=== PATIENT | female | born 1935 | race Caucasian/White ===

== ENCOUNTER 2019-12-10 16:40 | Emergency (ER) | payer MEDICARE ==
[2019-12-10] MEDS ORDERED: MORPHINE 10 MG/ML 1ML VIAL (J2270) IM ONE (17:15)
--- NOTE | 2019-12-10 18:12 | REP ---
Left humerus two views: There is demineralization. There is a transverse fracture in the proximal humeral shaft. There is a spiral comminuted fracture of the mid humeral shaft. There is advanced osteoarthritis of the glenohumeral joint and marked narrowing of the subacromial space. Electronically Signed by Santo Flores MD 12/10/2019 06:04 P
--- NOTE | 2019-12-10 18:14 | REP ---
Left elbow for views: Difficulty positioning arises from fractures of the humerus. Four nonstandard views are performed. There is a comminuted spiral fracture of the distal humeral shaft. No elbow fracture or dislocation are identified. No hemarthrosis. Impression: Negative nonstandard views of the left elbow. When the patient's clinical condition will permit I would recommend a follow-up standard left elbow series. Electronically Signed by Santo Flores MD 12/10/2019 06:05 P
[2019-12-10] MEDS ORDERED: PERC5TAB12 PO (18:23)
[2019-12-10 19:14] VITALS: BP 138/78
== END 2019-12-10 19:17 | disposition home or self-care (01) ==
LOC: EDBD 16:40 → M ED 16:40
DX: S42.202A Unspecified fracture of upper end of left humerus, initial encounter for closed fracture (principal); W01.198A Fall on same level from slipping, tripping and stumbling with subsequent striking against other object, initial encounter; Y92.9 Unspecified place or not applicable; Y93.A1 Activity, exercise machines primarily for cardiorespiratory conditioning; Y99.9 Unspecified external cause status; E11.9 Type 2 diabetes mellitus without complications; I10 Essential (primary) hypertension; M19.90 Unspecified osteoarthritis, unspecified site; Z88.5 Allergy status to narcotic agent
CPT/HCPCS: 73060; 73080; 96372; 99284; J2270

== ENCOUNTER → 2020-03-06 | Outpatient (REF) | payer MEDICARE ==
[~2020-03-06] MED LIST: PERC5TAB12 PO
[2020-03-06 11:41] LABS: BASO # 0.1 10^3/uL (0.0-0.2); BASO % 0.6 % (0.0-1.0); EOS # 0.5 10^3/uL (0.0-0.5); EOS % 5.4 % (0.0-3.0); HEMATOCRIT 39.2 % (36.0-47.0); HEMOGLOBIN 11.9 g/dl (12.0-15.5); LYMPH # 2.5 10^3/uL (1.5-5.0); LYMPH % 25.7 % (24.0-44.0); MEAN CORPUSCULAR HEMOGLOBIN 27.2 pg (27.0-33.0); MEAN CORPUSCULAR HGB CONC 30.4 g/dl (32.0-36.5); MEAN CORPUSCULAR VOLUME 89.7 fl (80.0-96.0); MONO # 0.8 10^3/uL (0.0-0.8); PLATELET COUNT, AUTOMATED 270 10^3/uL (150-450); RED BLOOD COUNT 4.37 10^6/uL (4.00-5.40); WHITE BLOOD COUNT 9.9 10^3/uL (4.0-10.0)
[2020-03-06 11:56] LABS: ALBUMIN 3.4 GM/DL (3.2-5.2); ALT/SGPT 25 U/L (12-78); BILIRUBIN,TOTAL 0.5 MG/DL (0.2-1.0); BLOOD UREA NITROGEN 14 MG/DL (7-18); CARBON DIOXIDE LEVEL 34 MEQ/L (21-32); CHLORIDE LEVEL 102 MEQ/L (98-107); CHOLESTEROL LEVEL 169 MG/DL (<200); CHOLESTEROL RISK RATIO 2.522 (<5); CREATININE FOR GFR 0.93 MG/DL (0.55-1.30); FREE T4 1.06 NG/DL (0.76-1.46); GLOMERULAR FILTRATION RATE > 60.0 (>32); GLUCOSE, FASTING 117 MG/DL (70-100); HDL CHOLESTEROL 67 MG/DL (>40); LDL CHOLESTEROL 84 MG/DL (<100); NON-HDL-C 102 MG/DL; POTASSIUM SERUM 4.6 MEQ/L (3.5-5.1); SODIUM LEVEL 142 MEQ/L (136-145); TOTAL PROTEIN 7.4 GM/DL (6.4-8.2); TRIGLYCERIDES LEVEL 92 MG/DL (<150)
== END ==
LOC: M PLALAB 09:15
PROVIDERS: ATTEND Physician Assistant Medical
DX: I10 Essential (primary) hypertension (principal); Z86.79 Personal history of other diseases of the circulatory system; K59.00 Constipation, unspecified

== ENCOUNTER 2020-07-21 13:59 | Inpatient (IN) | payer MEDICARE ==
[~2020-07-21] VITALS: Ht 157.5 cm; Wt 110.9 kg
[2020-07-21] MEDS ORDERED: OMEP-218 PO (14:26)
[2020-07-21] MEDS ORDERED: ATOR1TAB21 PO (14:26)
[2020-07-21] MEDS ORDERED: POTA10CA32 PO (14:26)
[2020-07-21] MEDS ORDERED: INCR1INH INH (14:26)
[2020-07-21] MEDS ORDERED: METO5TA PO (14:26)
[2020-07-21] MEDS ORDERED: FURO40TA2 PO (14:26)
[2020-07-21] MEDS ORDERED: MONT10TA4 PO (14:30)
[2020-07-21] MEDS ORDERED: FLUTISP NARES (14:30)
[2020-07-21] MEDS ORDERED: PROAAER10 INH (14:30)
[2020-07-21] MEDS ORDERED: BISO5TAB14 PO (14:30)
--- NOTE | 2020-07-21 15:11 | REPVR ---
PROCEDURE INFORMATION: Exam: XR Chest, 1 View Exam date and time: 07/21/2020 2:56 PM Age: 85 years old Clinical indication: Chest pain; Type not specified TECHNIQUE: Imaging protocol: XR of the chest Views: Frontal portable upright view of the chest. COMPARISON: No relevant prior studies available. FINDINGS: Tubes, catheters and devices: EKG leads are present overlying the chest. Lungs: Lateral left mid lung zone subsegmental atelectasis. The lungs are otherwise clear bilaterally. The pulmonary vasculature is normal. Pleural space: No pleural effusion. No pneumothorax. Heart/Mediastinum: The heart is normal in size and contour. Vasculature: Moderate aortic arch atherosclerotic calcification without ectasia. Bones/joints: Right lateral vertebral body marginal osteophytes are noted at multiple thoracic spinal levels. IMPRESSION: Lateral left mid lung zone subsegmental atelectasis. Electronically signed by: Francisco J Son On 07/21/2020 15:11:13 PM
[2020-07-21 15:30] LABS: BASO % 0.2 % (0.0-1.0); EOS # 0.1 10^3/uL (0.0-0.5); EOS % 0.3 % (0.0-3.0); HEMATOCRIT 38.8 % (36.0-47.0); HEMOGLOBIN 11.9 g/dl (12.0-15.5); LYMPH % 10.7 % (24.0-44.0); MEAN CORPUSCULAR HEMOGLOBIN 26.7 pg (27.0-33.0); MEAN CORPUSCULAR HGB CONC 30.7 g/dl (32.0-36.5); MONO # 1.7 10^3/uL (0.0-0.8); MONO % 9.1 % (0.0-5.0); NEUTROPHILS # 14.7 10^3/uL (1.5-8.5); NEUTROPHILS % 79.2 % (36.0-66.0); PLATELET COUNT, AUTOMATED 306 10^3/uL (150-450); RED BLOOD COUNT 4.46 10^6/uL (4.00-5.40); WHITE BLOOD COUNT 18.5 10^3/uL (4.0-10.0)
[2020-07-21 15:48] LABS: INR 1.12; PROTHROMBIN TIME 14.6 SECONDS (12.5-14.3)
[2020-07-21 15:49] LABS: PARTIAL THROMBOPLASTIN TIME 33.5 SECONDS (24.2-38.5)
[2020-07-21 16:06] LABS: ALBUMIN 3.1 GM/DL (3.2-5.2); ALT/SGPT 18 U/L (12-78); BILIRUBIN,DIRECT 0.3 MG/DL (0.0-0.2); BILIRUBIN,TOTAL 0.8 MG/DL (0.2-1.0); BLOOD UREA NITROGEN 26 MG/DL (7-18); CALCIUM LEVEL 9.5 MG/DL (8.8-10.2); CARBON DIOXIDE LEVEL 39 MEQ/L (21-32); CHLORIDE LEVEL 90 MEQ/L (98-107); CK-MB VALUE MASS 1.2 NG/ML (<3.6); CPK CREATINE PHOSPHOKINASE 153 U/L (26-192); CREATININE FOR GFR 1.26 MG/DL (0.55-1.30); FREE T4 1.69 NG/DL (0.76-1.46); GLOMERULAR FILTRATION RATE 42.9 (>32); GLUCOSE, FASTING 116 MG/DL (70-100); LIPASE 33 U/L (73-393); MB/CK RELATIVE INDEX 0.78 (< OR =4); NT-PRO BNP 336 PG/ML (<450); SODIUM LEVEL 134 MEQ/L (136-145); TOTAL PROTEIN 7.8 GM/DL (6.4-8.2); TROPONIN I < 0.02 NG/ML (< 0.10)
[2020-07-21] MEDS ORDERED: ISOVUE-370 76% 100ML VIAL As Ordered ONE (16:46)
--- NOTE | 2020-07-21 17:23 | REPVR ---
PROCEDURE INFORMATION: Exam: CT Abdomen And Pelvis With Contrast Exam date and time: 07/21/2020 4:34 PM Age: 85 years old Clinical indication: Abdominal pain; Additional info: Shortness of breath, ruq pain TECHNIQUE: Imaging protocol: Computed tomography of the abdomen and pelvis with intravenous contrast. Radiation optimization: All CT scans at this facility use at least one of these dose optimization techniques: automated exposure control; mA and/or kV adjustment per patient size (includes targeted exams where dose is matched to clinical indication); or iterative reconstruction. Contrast material: ISOVUE 370; Contrast volume: 100 ml; Contrast route: INTRAVENOUS (IV); COMPARISON: No relevant prior studies available. FINDINGS: Heart: Mitral annular calcification is present. Mediastinal space: A moderate hiatal hernia is present above the level of the diaphragm. Liver: Focal edema adjacent to the gallbladder. Mild diffuse hypoattenuation of the liver is present consistent with hepatic steatosis. Gallbladder and bile ducts: The gallbladder transverse lumen measures 6.9 cm. Nonuniform gallbladder wall thickening, maximal laterally, with focal masslike thickening measuring 14 mm thickness, with edema of the contiguous right lobe hepatic segment 5. No gallstones identified. No extrahepatic biliary ductal dilatation or ductal calculus identified. Pancreas: Severe pancreatic atrophy. Spleen: A small inferior splenule is present. Adrenals: Normal. No mass. Kidneys and ureters: Normal. No hydronephrosis. Stomach and bowel: There is mildly increased stool noted in the ascending colon. Sigmoid and distal descending colonic diverticula are present without evidence of diverticulitis. Appendix: Surgical laura and/or clips are noted at the previous base of the appendix. The appendix is surgically absent. Intraperitoneal space: Unremarkable. No free air. No significant fluid collection. Vasculature: Moderate abdominal aortic atherosclerotic calcification without aneurysm. The iliac arteries show mild bilateral atherosclerotic calcifications without evidence of aneurysm. LAD and RCA calcified coronary atherosclerosis. Lymph nodes: No enlarged lymph nodes. Urinary bladder: Partially obscured by streak artifact. No calculi as visualized. Reproductive: Partially obscured by streak artifact inferiorly, unremarkable as visualized. Bones/joints: Right total hip replacement with streak artifact. Bilateral lower lumbar facet primary osteoarthritis. Diffuse osteopenia. L4-5 spondylosis with bilateral neural foraminal stenosis. L5-S1 spondylosis with right neural foraminal stenosis. Soft tissues: Unremarkable. IMPRESSION: 1. Findings consistent with acalculous cholecystitis. Gallbladder sonography may be helpful. 2. Fatty infiltration of the liver. 3. Prior appendectomy. 4. Mild right abdominal colonic constipation. 5. Diverticulosis. 6. Hiatal hernia. 7. Coronary atherosclerosis. Electronically signed by: Francisco J Son On 07/21/2020 17:23:07 PM
--- NOTE | 2020-07-21 17:29 | REPVR ---
PROCEDURE INFORMATION: Exam: CT Angiography Chest With Contrast Exam date and time: 07/21/2020 4:34 PM Age: 85 years old Clinical indication: Shortness of breath; Additional info: Shortness of breath, ruq pain TECHNIQUE: Imaging protocol: Computed tomographic angiography of the chest with intravenous contrast. 3D rendering (Not supervised by radiologist): MIP and/or 3D reconstructed images were created by the technologist. Radiation optimization: All CT scans at this facility use at least one of these dose optimization techniques: automated exposure control; mA and/or kV adjustment per patient size (includes targeted exams where dose is matched to clinical indication); or iterative reconstruction. Contrast material: ISOVUE 370; Contrast volume: 100 ml; Contrast route: INTRAVENOUS (IV); COMPARISON: CR PORTABLE CHEST X-RAY 07/21/2020 2:46 PM FINDINGS: Pulmonary arteries: Normal. No pulmonary emboli. Aorta: Moderate aortic valvular calcification is present. Mild aortic arch, branch, and descending thoracic aortic atherosclerotic calcification without ectasia. Lungs: A posterior subpleural 5.4 mm noncalcified pulmonary nodule is noted in the posterior segment segment of the right upper lobe (LOC 118.9). Superior lingular 5.2 cm bulla. Pleural space: No pneumothorax. No pleural effusion. Heart: Mitral annular calcification is present. LAD, LCx and RCA calcified coronary atherosclerosis. Mediastinal space: A moderate hiatal hernia is present above the level of the diaphragm. Lymph nodes: Left axillary lymph node 8.2 mm short axis. Bones/joints: Diffuse osteopenia. Severe left shoulder osteoarthritis, partially imaged. Thoracic spine vertebral body marginal osteophytes are noted at multiple levels. Soft tissues: Unremarkable. IMPRESSION: 1. No pulmonary embolism identified. 2. Lingular bulla. 3. Noncalcified right upper lobe pulmonary nodule. For patients at low risk (minimal or absent history of smoking and of other known risk factors), no routine follow-up is indicated. For patients at high risk (history of smoking or of other known risk factors), consider optional CT at 12 months. (Nahun et al., Fleischner Society, 2017). 4. Coronary atherosclerosis. 5. Hiatal hernia. Electronically signed by: Francisco J Son On 07/21/2020 17:29:45 PM
[2020-07-21] MEDS ORDERED: PIPERACILLIN/TAZOBACTAM SOD 3.375 GM in D5W MINI-BAG PLUS 50 ML IV ONE (18:30)
[2020-07-21] MEDS ORDERED: NS 1,000 ML IV SCH (19:15)
--- NOTE | 2020-07-21 19:16 | REPVR ---
PROCEDURE INFORMATION: Exam: US Abdomen, Limited; Right Upper Quadrant Exam date and time: 07/21/2020 6:27 PM Age: 85 years old Clinical indication: Abdominal pain; Acute; Additional info: Ruq pain TECHNIQUE: Imaging protocol: US abdomen. Real time ultrasound with image documentation. Limited exam focused on the right upper quadrant. COMPARISON: CT ABD/PEL W/IV CONTRAST ONLY 07/21/2020 4:45 PM FINDINGS: Liver: The echogenicity of the liver is increased, which is compatible with fatty liver infiltration. No liver lesion is identified from the images obtained. The contour of the liver is smooth. Gallbladder: There are gallstones and biliary sludge in the distended gallbladder. There is thickening of the wall of the gallbladder, which measures up to 11 mm in thickness. There is a small amount of pericholecystic fluid. On review of the CT abdomen and pelvis on 07/21/2020, inflammatory fat stranding can be seen around the gallbladder. These findings are compatible with acute cholecystitis. Common bile duct: No dilation (7 mm in diameter). No stones are identified in the imaged portion of the common bile duct. Pancreas: The imaged portion of the pancreas is unremarkable. The head of the pancreas was obscured by gas in the stomach and bowel. Right kidney: The right kidney is normal in appearance and measures 11 cm in length. There is no renal cortical thinning. The renal cortical echogenicity is within normal limits. No renal lesion is seen. There is no hydronephrosis. No obvious stones are seen in the renal collecting system. IMPRESSION: 1. Acute cholecystitis. 2. Fatty liver. Electronically signed by: David Toro On 07/21/2020 19:16:28 PM
[2020-07-21] MEDS ORDERED: ALBU83IN NEB (19:51)
[2020-07-21] MEDS ORDERED: ASPI81TA26 PO (19:52)
[2020-07-21] MEDS ORDERED: ALBUTEROL SULFATE 2.5 MG/0.5 ML INH NEB SOLN NEB PRN (21:00)
[2020-07-21] MEDS ORDERED: ONDANSETRON 4MG/2ML VIAL IV PRN (21:00)
[2020-07-21] MEDS ORDERED: POTASSIUM CHLORIDE 10 MEQ SR TABLET PO ONE (21:00)
[2020-07-21 22:40] VITALS: BP 121/59
[2020-07-21] MEDS: OMEPRAZOLE 20 MG CAP PO SCH (23:24)
[2020-07-21] MEDS: LR 1,000 ML IV SCH (23:26)
[2020-07-22] VITALS (7 sets, daily range): BP systolic 96–126; BP diastolic 6–68
[2020-07-22] MEDS: PIPERACILLIN/TAZOBACTAM SOD 3.375 GM in D5W MINI-BAG PLUS 50 ML IV SCH ×4 (02:28→20:56)
[2020-07-22] MEDS: KETOROLAC 30 MG/ML 1ML VIAL IV PRN ×2 (02:28→14:08)
--- NOTE | 2020-07-22 06:47 | HPE ---
DATE OF ADMISSION: 07/21/2020 ADMITTING DIAGNOSIS: Cholelithiasis with acute cholecystitis. HISTORY OF PRESENT ILLNESS: The patient is a pleasant 85-year-old woman who was sent to the Emergency Department from her physicians office with a history of palpitations and chest pain. She reports that she had started having some upper abdominal pain, particularly in the right subcostal area starting on the 20 of July in the afternoon. She had some associated nausea. Her discomfort persisted and she presented to her primary physicians office today where she apparently saw Kari Middleton. With her complaint of chest discomfort she was referred to the Emergency Department for evaluation. In the Emergency Department she underwent workup with laboratory studies including a cardiac injury profile and an EKG. These showed no evidence of acute cardiac problem. She had a CT angiogram of the chest which showed no evidence of pulmonary embolism and also no evidence of pneumothorax or pneumonia. Her workup included a CT scan of the abdomen and pelvis and a gallbladder ultrasound. These last two studies confirmed cholelithiasis with a markedly distended and thickened gallbladder consistent with acute cholecystitis. Dr. Dowd of the Emergency Department has consulted me to evaluate the patient for acute cholecystitis. The patient denies past history of known stones or any past significant abdominal pains. ALLERGIES: The patient denies any known drug allergies, though her medical record indicates that Morphine leads to significant nausea and vomiting. MEDICAL HISTORY: History of paroxysmal atrial fibrillation. She is not currently on any anticoagulation for this. 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 She also did smoke for a time. She has significant osteoarthritis and very limited ambulation. She generally gets around in a wheelchair. She has a history of hypertension and hyperlipidemia. She has some gastroesophageal reflux disease with a known hiatal hernia. She has environmental allergies. SURGICAL HISTORY: The patient reports having had a laparoscopic appendectomy for a ruptured appendix back in 2016. She had a right hip replacement in 2009. She has had bilateral knee surgeries but not a knee replacement. She has had a hemorrhoidectomy. She underwent removal of a thyroid nodule. She reports having had a cardiac catheterization many years ago but no therapeutic maneuvers were performed. 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 She believes she also had a small hernia fixed at the time of her appendectomy. MEDICATIONS: At the time of presentation include: * Albuterol nebulizer every 4 hours as needed for shortness of breath or wheezing. * Albuterol inhaler p.r.n. for shortness of breath. * Aspirin 81 mg p.o. daily. * Atorvastatin 20 mg p.o. daily. * Bisoprolol 5 mg p.o. daily. * Fluticasone Propionate Nasal [place] 2 sprays in the nares daily p.r.n. * Furosemide 40 mg p.o. twice daily with the second dose at dinnertime. * Metolazone 5 mg p.o. daily as needed for swelling in her feet. * Montelukast 10 mg p.o. daily. * Omeprazole 20 mg p.o. twice daily. * Potassium Chloride 10 mEq p.o. daily. * Incruse Ellipta one puff inhaled daily as needed for shortness of breath. REVIEW OF SYSTEMS: The patient denies any chest pain or palpitations currently. She has no shortness of breath, cough, wheezing or sputum production currently. She has no history of hepatitis or pancreatitis or yellow jaundice. She denies any history of diabetes. Other than her thyroid resection for a nodule, she has had no history of thyroid problems. She denies any history of seizure, stroke or TIA and denies any history of DVT or pulmonary embolus. FAMILY HISTORY: Her father had heart disease and her mother was in her mid to late 60s. SOCIAL HISTORY: The patient is currently living with her daughter in the [facility]. She does not smoke and denies any alcohol intake. She reports that she uses a wheelchair to get around and can take only nine or ten steps because of weakness in her legs and pain from her arthritis. PHYSICAL EXAMINATION: VITAL SIGNS: The patient's most recent vital signs show a temperature that was 98.5 when she presented. That was some hours ago. She has a pulse of 75, blood pressure of 99/51 and an oxygen saturation on room air of 91%. GENERAL APPEARANCE: The patient is a pleasant woman lying on the Emergency Department stretcher. She is alert and oriented. She is clearly suffering from morbid obesity. SKIN: Warm and dry. HEENT: Sclerae are anicteric. NECK: Without palpable mass and she has no bruit. HEART: Regular rate and rhythm and she is not tachycardic. LUNGS: Good bilateral breath sounds without wheezes or rhonchi. ABDOMEN: Quite obese. She has a small scar at the inferior aspect of the umbilicus. She has some bowel sounds present on auscultation. On palpation there is a prominence palpable in the medial aspect of the right subcostal area which is moderately to markedly tender. The remainder of the abdomen is without significant tenderness. EXTREMITIES: Chronic, edematous changes in the ankles bilaterally. She has palpable dorsalis pedis and radial pulses bilaterally. LABORATORY STUDIES: CBC with a white count of 18, hemoglobin 12, hematocrit 39 and a platelet count of 306,000. Differential count shows 79% neutrophils, 11% lymphocytes and 9% monocytes. Chemistry profile shows a sodium of 134, potassium 3.0, chloride 90, CO2 of 39, BUN is 26, creatinine 1.3, and a glucose of 116. Liver function tests were normal with the exception of minimal elevation of the alkaline phosphatase to 130. Total protein is 7.8 with an albumin of 3.1. Lipase is normal at 33. She had a coagulation panel that was normal with the exception of a PT of 14.6 which was minimally elevated. IMAGING: A chest x-ray which showed clear lung li bilaterally. Her CT angiogram of the chest showed no evidence of pulmonary embolus. She did have a small air pocket in the left mid lung field, possibly a bleb. She had a CT scan of the abdomen and pelvis that reveals diffuse fatty changes of the liver. The gallbladder is markedly distended. There is marked thickening of the gallbladder wall. There is evidence for a prior appendectomy as well as some diverticulosis. She is also noted to have a hiatal hernia which is small to medium in size. Her gallbladder ultrasound showed sludge and gallstones and a dilated gallbladder with markedly thickened gallbladder wall. IMPRESSION: 1. Cholelithiasis with acute cholecystitis. 2. Morbid obesity. 3. Chronic obstructive pulmonary disease. 4. Paroxysmal atrial fibrillation not currently on any anticoagulation. 5. Osteoarthritis. 6. Hypertension. 7. Hyperlipidemia. PLAN: The patient will be admitted for management of her cholecystitis. She was started on Piperacillin Tazobactam in the Emergency Department and I will continue this for antibiotic coverage. I will continue her cardiac medications and respiratory medications. I will request a physical therapy evaluation and follow up as she has quite limited mobility at baseline, and we need to preserve as much function as possible. I counseled her that the appropriate treatment for her acute cholecystitis would be a cholecystectomy at the earliest opportunity. She had an opportunity to ask questions and desires to proceed with the treatment as I have recommended. ALLA
--- NOTE | 2020-07-22 08:18 | ECGEPIP ---
[facility] - ED Test Date: 2020-07-21 Pat Name: FREEMAN ROCK Department: Room: [place] [address] Gender: Female Queen Producer: DEVORAH : 1935 Requested By: JESSICA Pearson Order Number: [id number] Reading MD: Earle Loving Measurements Intervals Lucas Rate: 73 P: 41 DC: 188 QRS: -11 QRSD: 134 T: 46 QT: 419 QTc: 464 Interpretive Statements SINUS RHYTHM INTRAVENTRICULAR CONDUCTION DELAY PRIOR INFERIOR INFARCT BASELINE ARTIFACT AFFECTS INTERPRETATION NO PRIORS FOR COMPARISON Electronically Signed on 07-22-2020 8:18:14 EDT by Earle Loving
[2020-07-22] MEDS: OMEPRAZOLE 20 MG CAP PO SCH ×2 (08:30→21:00)
[2020-07-22] MEDS: bisoproloL fumarate 5 MG TAB PO SCH (08:30)
[2020-07-22] MEDS: MONTELUKAST 10 MG TAB PO SCH (08:31)
[2020-07-22] MEDS: FUROSEMIDE 40 MG TAB PO SCH ×2 (08:31→16:46)
[2020-07-22] MEDS: LR 1,000 ML IV SCH (08:32)
[2020-07-22 08:44] LABS: BASO % 0.2 % (0.0-1.0); EOS # 0.2 10^3/uL (0.0-0.5); EOS % 1.1 % (0.0-3.0); HEMATOCRIT 35.5 % (36.0-47.0); HEMOGLOBIN 10.9 g/dl (12.0-15.5); LYMPH # 1.5 10^3/uL (1.5-5.0); LYMPH % 10.4 % (24.0-44.0); MEAN CORPUSCULAR HEMOGLOBIN 26.8 pg (27.0-33.0); MEAN CORPUSCULAR HGB CONC 30.7 g/dl (32.0-36.5); MEAN CORPUSCULAR VOLUME 87.2 fl (80.0-96.0); MONO # 1.3 10^3/uL (0.0-0.8); NEUTROPHILS % 78.8 % (36.0-66.0); PLATELET COUNT, AUTOMATED 260 10^3/uL (150-450); RED BLOOD COUNT 4.07 10^6/uL (4.00-5.40)
[2020-07-22] MEDS ORDERED: FLUBLOK(EGG FREE)(QUAD)INFLUENZA VACC 0.5ML SYRINGE 18YRS & OLDER IM ONE (09:00)
[2020-07-22 09:41] LABS: ALBUMIN 2.5 GM/DL (3.2-5.2); BILIRUBIN,TOTAL 0.9 MG/DL (0.2-1.0); CALCIUM LEVEL 8.8 MG/DL (8.8-10.2); CREATININE FOR GFR 1.17 MG/DL (0.55-1.30); GLOMERULAR FILTRATION RATE 46.7 (>32); POTASSIUM SERUM 2.6 MEQ/L (3.5-5.1); TOTAL PROTEIN 6.9 GM/DL (6.4-8.2)
[2020-07-22] MEDS ORDERED: POTASSIUM CHLORIDE 10 MEQ SR TABLET PO ONE (10:45)
[2020-07-22] MEDS: POTASSIUM CHLORIDE 10 MEQ SR TABLET PO SCH ×2 (11:36→13:06)
[2020-07-22] MEDS: ACETAMINOPHEN TAB 650MG DOSE (2X325MG) PO PRN (12:00)
[2020-07-22] MEDS: POTASSIUM CHLORIDE INJ 40 MEQ in LR 1,000 ML IV SCH ×2 (13:51→21:47)
[2020-07-22] MEDS ORDERED: ROCURONIUM BROMIDE 50 MG/5 ML VIAL As Ordered ONE ×2 (17:11→18:13)
[2020-07-22] MEDS ORDERED: propofoL 200 MG/20 ML VIAL As Ordered ONE (17:11)
[2020-07-22] MEDS ORDERED: LIDOCAINE 2% 100MG/5ML SDV (FOR ANES.) As Ordered ONE (17:11)
[2020-07-22] MEDS ORDERED: fentaNYL 100 MCG/2 ML INJECTION (J3010) As Ordered ONE ×2 (17:12→18:58)
[2020-07-22] MEDS ORDERED: MIDAZOLAM INJ 2MG/2ML VIAL (J2250 PER 1MG) As Ordered ONE (17:12)
[2020-07-22] MEDS ORDERED: BUPIVACAINE HCL 0.25% 30ML VIAL As Ordered ONE (17:17)
[2020-07-22] MEDS ORDERED: ePHEDrine SULFATE 25 MG/5 ML(5MG/ML) SYRINGE As Ordered ONE (18:07)
[2020-07-22] MEDS ORDERED: SUGAMMADEX SODIUM 500 MG/5 ML VIAL (BRIDION) As Ordered ONE (18:08)
[2020-07-22] MEDS ORDERED: ACETAMINOPHEN 1000MG 100ML IV BTL (OFIRMEV) (J0131 PER 10MG) As Ordered ONE (18:17)
[2020-07-22] MEDS ORDERED: dexameTHASONE 4 MG/ML 1ML VIAL (J1100 PER 1MG) As Ordered ONE (19:08)
[2020-07-22] MEDS ORDERED: ONDANSETRON 4MG/2ML VIAL As Ordered ONE (19:08)
[2020-07-22] MEDS ORDERED: oxyCODONE 5MG TAB PO PRN ×2 (20:15)
[2020-07-22] MEDS ORDERED: ONDANSETRON 4MG/2ML VIAL IV PRN (20:15)
[2020-07-22] MEDS ORDERED: METOCLOPRAMIDE INJ 10MG/2ML VIAL (J2765 PER 1) IV PRN (20:15)
[2020-07-22] MEDS ORDERED: fentaNYL 100 MCG/2 ML INJECTION (J3010) IV PRN (20:15)
[2020-07-22] MEDS ORDERED: LR 1,000 ML IV SCH (20:15)
[2020-07-22] MEDS ORDERED: ZOSYN 3.375GM VIAL (J2543) As Ordered ONE (20:22)
[2020-07-23] VITALS (7 sets, daily range): BP systolic 96–144; BP diastolic 48–63
[2020-07-23] MEDS: PIPERACILLIN/TAZOBACTAM SOD 3.375 GM in D5W MINI-BAG PLUS 50 ML IV SCH ×4 (02:19→20:48)
[2020-07-23 06:18] LABS: BASO % 0.2 % (0.0-1.0); EOS % 0.1 % (0.0-3.0); HEMATOCRIT 35.6 % (36.0-47.0); HEMOGLOBIN 10.7 g/dl (12.0-15.5); LYMPH # 0.9 10^3/uL (1.5-5.0); LYMPH % 7.6 % (24.0-44.0); MEAN CORPUSCULAR HEMOGLOBIN 26.5 pg (27.0-33.0); MEAN CORPUSCULAR HGB CONC 30.1 g/dl (32.0-36.5); MEAN CORPUSCULAR VOLUME 88.1 fl (80.0-96.0); MONO # 0.5 10^3/uL (0.0-0.8); MONO % 4.2 % (0.0-5.0); NEUTROPHILS # 9.9 10^3/uL (1.5-8.5); NEUTROPHILS % 87.2 % (36.0-66.0); PLATELET COUNT, AUTOMATED 272 10^3/uL (150-450); RED BLOOD COUNT 4.04 10^6/uL (4.00-5.40); WHITE BLOOD COUNT 11.4 10^3/uL (4.0-10.0)
[2020-07-23 06:41] LABS: ALBUMIN 2.3 GM/DL (3.2-5.2); BILIRUBIN,TOTAL 0.8 MG/DL (0.2-1.0); CALCIUM LEVEL 8.5 MG/DL (8.8-10.2); CREATININE FOR GFR 1.22 MG/DL (0.55-1.30); GLOMERULAR FILTRATION RATE 44.5 (>32); POTASSIUM SERUM 3.7 MEQ/L (3.5-5.1); TOTAL PROTEIN 6.7 GM/DL (6.4-8.2)
[2020-07-23] MEDS: MONTELUKAST 10 MG TAB PO SCH (08:44)
[2020-07-23] MEDS: FUROSEMIDE 40 MG TAB PO SCH ×2 (08:45→16:20)
[2020-07-23] MEDS: OMEPRAZOLE 20 MG CAP PO SCH ×2 (08:45→20:48)
[2020-07-23] MEDS: bisoproloL fumarate 5 MG TAB PO SCH (08:45)
[2020-07-23] MEDS: POTASSIUM CHLORIDE 10 MEQ SR TABLET PO SCH ×2 (08:48→20:48)
[2020-07-23] MEDS: MIRALAX *UNIT DOSE* 17GM PACKET PO SCH ×2 (16:21→20:48)
[2020-07-23] MEDS: DOCUSATE SODIUM 100 MG CAP PO SCH (20:48)
[2020-07-23] MEDS: ACETAMINOPHEN TAB 650MG DOSE (2X325MG) PO PRN (20:48)
[2020-07-24] MEDS: PIPERACILLIN/TAZOBACTAM SOD 3.375 GM in D5W MINI-BAG PLUS 50 ML IV SCH ×3 (01:42→14:20)
[2020-07-24 02:00] VITALS: BP 125/63
[2020-07-24 06:00] VITALS: BP 137/63
[2020-07-24 07:14] LABS: BASO % 0.4 % (0.0-1.0); EOS # 0.3 10^3/uL (0.0-0.5); EOS % 2.7 % (0.0-3.0); HEMATOCRIT 35.3 % (36.0-47.0); HEMOGLOBIN 10.6 g/dl (12.0-15.5); LYMPH # 2.1 10^3/uL (1.5-5.0); LYMPH % 21.9 % (24.0-44.0); MEAN CORPUSCULAR HEMOGLOBIN 27.3 pg (27.0-33.0); MONO # 0.8 10^3/uL (0.0-0.8); NEUTROPHILS # 6.5 10^3/uL (1.5-8.5); NEUTROPHILS % 66.6 % (36.0-66.0); PLATELET COUNT, AUTOMATED 252 10^3/uL (150-450); RED BLOOD COUNT 3.88 10^6/uL (4.00-5.40); WHITE BLOOD COUNT 9.7 10^3/uL (4.0-10.0)
[2020-07-24 07:40] LABS: ALBUMIN 2.2 GM/DL (3.2-5.2); BILIRUBIN,TOTAL 0.4 MG/DL (0.2-1.0); CALCIUM LEVEL 8.2 MG/DL (8.8-10.2); CREATININE FOR GFR 1.04 MG/DL (0.55-1.30); GLOMERULAR FILTRATION RATE 53.5 (>32); POTASSIUM SERUM 3.3 MEQ/L (3.5-5.1); TOTAL PROTEIN 6.2 GM/DL (6.4-8.2)
[2020-07-24] MEDS: POTASSIUM CHLORIDE 10 MEQ SR TABLET PO SCH (08:14)
[2020-07-24 08:18] VITALS: BP 113/79
[2020-07-24] MEDS: DOCUSATE SODIUM 100 MG CAP PO SCH (08:18)
[2020-07-24] MEDS: FUROSEMIDE 40 MG TAB PO SCH ×2 (08:18→16:50)
[2020-07-24] MEDS: bisoproloL fumarate 5 MG TAB PO SCH (08:18)
[2020-07-24] MEDS: MONTELUKAST 10 MG TAB PO SCH (08:18)
[2020-07-24] MEDS: OMEPRAZOLE 20 MG CAP PO SCH (08:18)
[2020-07-24] MEDS ORDERED: ASPIRIN 81 MG ENTERIC TAB PO SCH (09:00)
[2020-07-24] MEDS ORDERED: ATORVASTATIN 20 MG TAB PO SCH (09:00)
[2020-07-24 10:00] VITALS: BP 134/63
--- NOTE | 2020-07-24 10:51 | RO ---
DATE OF OPERATION: 07/22/2020 PREOPERATIVE DIAGNOSIS: Cholelithiasis with acute cholecystitis. POSTOPERATIVE DIAGNOSIS: Cholelithiasis with acute cholecystitis. PROCEDURE: Laparoscopic cholecystectomy. SURGEON: Fly Hand M.D. ANESTHESIA: General. INDICATIONS FOR PROCEDURE: Patient is an 85-year-old woman who presented to the emergency department with some epigastric pain and tenderness. Evaluation with CT and ultrasound showed a markedly dilated and thickened gallbladder containing gallstones consistent with acute cholecystitis. She was admitted and started on antibiotics and is now for a laparoscopic cholecystectomy. OPERATIVE PROCEDURE: The patient was brought to the operating room and placed on the table in a supine position. She was placed under general endotracheal anesthesia. The patients abdomen was prepped and draped in a sterile fashion. The distended gallbladder was palpable in the right subcostal area. A 0.25% Marcaine was infiltrated at each of the trocar sites as needed. A short supraumbilical midline incision was made and a Veress needle was inserted. After a positive hanging drop test, the abdomen was inflated. The fascia was incised and a 12-mm port was placed through the supraumbilical site. The laparoscope was placed. Insufflation continued. There was a large mound of omentum in the subhepatic space consistent with walling off of the inflamed gallbladder beneath the omentum. A 5 mm port was placed in the left upper quadrant and two 5 mm ports were placed in the right upper quadrant. The patient was tilted to a reverse Trendelenburg positive and rolled slightly to the left. Graspers were inserted. It was possible to peel the inflamed omentum off of the underlying markedly distended gallbladder using primarily blunt dissection. The gallbladder was clearly quite distended and inflamed. There was no evidence of necrosis however. The tensely distended gallbladder was aspirated with an aspirating needle with return of a large amount of clear, lightly cloudy fluid which was not bilious in color. The gallbladder decompressed nicely though the wall remained quite thickened. It was possible then to grasp the gallbladder and elevate this. There was some omentum adherent around the distal body and neck of the gallbladder and this was dissected free. All of these tissues were quite edematous making dissection somewhat more difficult. The peritoneum was then scored around the neck of the gallbladder and dissection proceeded through the pericholecystic fibrofatty tissues. The cystic duct was identified. The cholecystic artery was also identified. Both structures were cleared of surrounding tissues and then doubly clipped with hemoclips and divided. With further dissection through the thickened tissues around the gallbladder neck, a second artery coming up the lateral aspect of the gallbladder bed was identified and this was controlled with hemoclips and cautery. The gallbladder was then dissected off of the gallbladder bed using cautery dissection. This was a slower process because of the extensive scarring and edema. Once the gallbladder had been completely freed, it was placed in an Endopouch. The right upper quadrant was then copiously irrigated. Several small bleeding points in the gallbladder bed were controlled with cautery. Final inspection revealed no evidence of bleeding or bile leak. The patient was returned to a flat position and a final irrigation of the right upper quadrant was performed. The patient's abdomen was then deflated and the trocars were all removed. The gallbladder was recovered through the supraumbilical site. This necessitated extending the skin and fascial incisions to approximately 4-5 cm to allow passage of the markedly thickened gallbladder. This was sent for permanent pathology. The fascia was closed with interrupted simple sutures of 1-0 Vicryl. The skin incisions were all closed with buried 4-0 Vicryl and Steri-Strips. Light dressings were applied. The patient tolerated the procedure well without apparent complications. She was awakened in the operating room, extubated and moved to the recovery room in stable condition. ALLA
[2020-07-24 14:00] VITALS: BP 137/63
--- NOTE | 2020-07-25 11:46 | IPN ---
DATE: 07/23/2020 HISTORY: The patient is now postop day #1 from a laparoscopic cholecystectomy for severe acute cholecystitis. The gallbladder was markedly inflamed and thickened but not gangrenous. There was no spillage of gallbladder contents during the procedure. The patient reports very little discomfort this morning. She has tolerated liquids well. Vital signs show that she has been afebrile since surgery. Her pulse has remained in the 60s. Blood pressure has been good with a good oxygen saturation. Intake and output shows that yesterday she had 1500 in with 1100 out. Her urine output was good and she appears to have a good urine output this morning as well. PHYSICAL EXAMINATION: Patient is lying quietly in the hospital bed. Her morbid obesity is apparent. She is alert and oriented. Heart and lung exams are unremarkable. The abdomen is obese. Her wound dressings are clean and dry. She has bowel sounds present. The abdomen is without any undue tenderness. LABORATORY STUDIES: Today show a white count of 11,000 with a differential showing 87% neutrophils and 8% lymphocytes. She has a hemoglobin of 11, hematocrit 36 and a platelet count of 272,000. Her chemistry profile shows a sodium of 140, potassium of 3.7, chloride 99, CO2 of 35, BUN of 21, a creatinine of 1.2 and a glucose of 138. Liver function tests show a very slight rise from yesterday. IMPRESSION: Patient is doing very well postop day #1 from her laparoscopic cholecystectomy. PLAN: Patient has not yet had much regular food. She has no nausea or vomiting but has been slow to advance her diet somewhat. She is also complaining of a feeling of constipation. I have recommended that she remain in the hospital another day, both to monitor for her severe acute cholecystitis. If her white count and differential return toward normal and she has an improved intake tomorrow, I anticipate she could be discharged. ALLA
--- NOTE | 2020-07-25 11:48 | IPN ---
DATE: 07/24/2020 HISTORY: Patient is now postop day #2 from a laparoscopic cholecystectomy for a markedly inflamed gallbladder with large stones. This afternoon, she is up in her wheelchair, dressed and in excellent spirits and eager to go home. She denies any significant pain and has had no pain medication since yesterday and that was Tylenol. Vital signs show that she has been afebrile with a pulse in the 60s and 70s and a normal blood pressure. Intake and output shows that she did have a bowel movement yesterday. Her urine output is good and her intake has been good. PHYSICAL EXAMINATION: As noted, patient is up in a wheelchair. Examination of the abdomen shows it to be obese but soft and her dressings and wounds are clean and dry. She has no undue tenderness. LABORATORY STUDIES: Show that her white count today is 10 with a hemoglobin of 11, hematocrit of 35 and a platelets count of 252,000. Her differential is approaching normal with 67% neutrophils, 22% lymphocytes and 8% monocytes. Chemistry profile shows a sodium of 141, potassium of 3.3, chloride 100, CO2 of 36, BUN of 32, creatinine 1.0 and a glucose of 98. Her liver function tests are slightly improved from yesterday. Pathology reveals acute suppurative cholecystitis with cholelithiasis. IMPRESSION: Patient is doing very well now two days postop from her laparoscopic cholecystectomy for acute cholecystitis. She has been taking a diet well, has had a bowel movement and appears quite comfortable today and is eager to go home. She plans to be singing with her virtual prayer group this evening. PLAN: I discussed with the patient her wound care. She can shower as desired and replace the dressings over her wounds if she desires. She should leave the Steri-Strips in place as long as they will stay on. She can take a diet as tolerated and should resume all of her preadmission medications. I will not provide her with a prescription for pain medications as she has not been taking anything. She was advised against any strenuous physical activity for the next two weeks. She should follow up in my office with me in 10-14 days. She should call my office sooner for any problems. She had an opportunity to ask questions. She will be released. ALLA
== END 2020-07-24 17:05 | disposition home or self-care (01) | DRG 418 ==
LOC: M ED 13:59 → M ED INP 20:56 → ENRESERV 21:47 → CANRESERV 21:47 → ENRESERV 22:08 → M MS5PR 22:24
PROVIDERS: ADMIT Surgery; ATTEND Surgery
PROC: 0FT44ZZ Resection of Gallbladder, Percutaneous Endoscopic Approach (ICD-10-PCS; principal; 2020-07-22 16:00)
DX: K80.62 Calculus of gallbladder and bile duct with acute cholecystitis without obstruction (principal); Z68.41 Body mass index [BMI] 40.0-44.9, adult; J44.9 Chronic obstructive pulmonary disease, unspecified; I10 Essential (primary) hypertension; E78.5 Hyperlipidemia, unspecified; M19.90 Unspecified osteoarthritis, unspecified site; K21.9 Gastro-esophageal reflux disease without esophagitis; K44.9 Diaphragmatic hernia without obstruction or gangrene; K76.0 Fatty (change of) liver, not elsewhere classified; J30.9 Allergic rhinitis, unspecified; Z90.49 Acquired absence of other specified parts of digestive tract; Z96.641 Presence of right artificial hip joint; Z79.82 Long term (current) use of aspirin; Z79.899 Other long term (current) drug therapy; Z87.891 Personal history of nicotine dependence; E66.01 Morbid (severe) obesity due to excess calories; I48.0 Paroxysmal atrial fibrillation

== ENCOUNTER → 2020-08-14 | Outpatient (CLI) | payer MEDICARE ==
[~2020-08-14] MED LIST changes: +ALBU83IN NEB; +ASPI81TA26 PO; +ATOR1TAB21 PO; +BISO5TAB14 PO; +FLUTISP NARES; +FURO40TA2 PO; +INCR1INH INH; +METO5TA PO; +MONT10TA4 PO; +OMEP-218 PO; +POTA10CA32 PO; +PROAAER10 INH
--- NOTE | 2020-08-14 14:57 | REP ---
INDICATION: RIGHT UPPER QUADRANT PAIN US 1ST LABS 2ND. Status post recent cholecystectomy. COMPARISON: Comparison CT study July 21, 2020. Comparison sonography July 21, 2020.. TECHNIQUE: Transabdominal right upper quadrant scanning. FINDINGS: Scanning through the right upper quadrant of the abdomen was somewhat limited due to body habitus and limited subcostal scan windows. Gallbladder surgically absent. Common bile duct measures 1.0 cm which is the upper range of normal post cholecystectomy. I note that the CBD measurement was 0.7 cm by ultrasound on July 21, 2020. There is increased echogenicity and poor insonation generally in the liver consistent with fatty infiltration. There are 3 hypoechoic areas in the right lobe of the liver. These measure as follows: 1.7 x 1.2 x 1.6, 0.8 x 0.6 x 0.8, and 0.7 x 0.7 x 0.3 cm respectively. These were not previously apparent. Their appearance compared to recent prior studies raises a question of a small intrahepatic abscesses. The pancreas is obscured by abdominal gas. There is no evidence of abdominal ascites. No right renal abnormality is noted. The right kidney measures 9.0 x 3.6 x 4.1 cm. IMPRESSION: Three small focal hypodense lesions in the liver not previously observed question small abscesses. The largest of these measures 1.7 cm in greatest diameter. Common bile duct is at the upper range of normal post cholecystectomy, 1.0 cm. Consider further imaging with CT scanning or MRCP exam. <Electronically signed by Yeyo Alba > 08/14/20 [id number]
[2020-08-14 15:03] LABS: BASO % 0.3 % (0.0-1.0); EOS # 0.2 10^3/uL (0.0-0.5); HEMATOCRIT 42.6 % (36.0-47.0); HEMOGLOBIN 12.8 g/dl (12.0-15.5); LYMPH # 2.4 10^3/uL (1.5-5.0); MEAN CORPUSCULAR HEMOGLOBIN 26.1 pg (27.0-33.0); MEAN CORPUSCULAR VOLUME 86.9 fl (80.0-96.0); MONO # 0.7 10^3/uL (0.0-0.8); MONO % 6.8 % (0.0-5.0); NEUTROPHILS # 7.5 10^3/uL (1.5-8.5); NEUTROPHILS % 68.4 % (36.0-66.0); PLATELET COUNT, AUTOMATED 338 10^3/uL (150-450); WHITE BLOOD COUNT 10.9 10^3/uL (4.0-10.0)
[2020-08-14 15:04] LABS: APPEARANCE, URINE CLEAR (CLEAR); BACTERIA, URINE AUTO 1+ (NEGATIVE); BILIRUBIN, URINE AUTO NEGATIVE (NEGATIVE); BLOOD, URINE BLOOD NEGATIVE (NEGATIVE); COLOR, URINE YELLOW (YELLOW); GLUCOSE, URINE (UA) AUTO NEGATIVE (NEGATIVE); KETONE, URINE AUTO NEGATIVE (NEGATIVE); LEUKOCYTE ESTERASE, URINE AUTO NEGATIVE (NEGATIVE); MUCUS, URINE SMALL (NEGATIVE); NITRITE, URINE AUTO NEGATIVE (NEGATIVE); PROTEIN, URINE AUTO NEGATIVE (NEGATIVE); RBC, URINE AUTO 5 /HPF (0-3); SPECIFIC GRAVITY URINE AUTO 1.011 (1.002-1.035); SQUAMOUS EPITHELIAL CELL UR AU 3 /HPF (0-6); UROBILINOGEN, URINE AUTO 0.2 mg/dL (0.0-2.0); WBC, URINE AUTO 4 /HPF (0-3)
[2020-08-14 15:33] LABS: ALBUMIN 3.6 GM/DL (3.2-5.2); BILIRUBIN,DIRECT 0.1 MG/DL (0.0-0.2); BILIRUBIN,TOTAL 0.5 MG/DL (0.2-1.0); CALCIUM LEVEL 9.9 MG/DL (8.8-10.2); CREATININE FOR GFR 1.23 MG/DL (0.55-1.30); GLOMERULAR FILTRATION RATE 44.1 (>32); POTASSIUM SERUM 3.3 MEQ/L (3.5-5.1); TOTAL PROTEIN 8.4 GM/DL (6.4-8.2)
== END ==
LOC: M RAD 13:47
PROVIDERS: ATTEND Nurse Practitioner
DX: K76.9 Liver disease, unspecified (principal); R10.11 Right upper quadrant pain; Z90.49 Acquired absence of other specified parts of digestive tract

== ENCOUNTER → 2020-08-26 | Outpatient (REF) | payer MEDICARE ==
[2020-08-26 11:44] LABS: INR 1.06
[2020-08-26 11:45] LABS: PARTIAL THROMBOPLASTIN TIME 34.6 SECONDS (24.2-38.5)
[2020-08-26 12:00] LABS: CALCIUM LEVEL 9.7 MG/DL (8.8-10.2); PHOSPHORUS LEVEL 3.4 MG/DL (2.5-4.9); POTASSIUM SERUM 4.9 MEQ/L (3.5-5.1)
== END ==
LOC: M PLALAB 09:43
PROVIDERS: ATTEND Family Medicine
DX: I10 Essential (primary) hypertension (principal); Z51.81 Encounter for therapeutic drug level monitoring

== ENCOUNTER → 2020-09-03 | Outpatient (REF) | payer MEDICARE ==
[~2020-09-03] MED LIST changes: -MONT10TA4 PO; +MONT5TAB2 PO
[2020-09-03 11:16] LABS: INR 1.08; PROTHROMBIN TIME 14.2 SECONDS (12.5-14.3)
[2020-09-03 11:30] LABS: ALBUMIN 3.2 GM/DL (3.2-5.2); ALT/SGPT 22 U/L (12-78); BILIRUBIN,TOTAL 0.6 MG/DL (0.2-1.0); BLOOD UREA NITROGEN 18 MG/DL (7-18); CALCIUM LEVEL 9.1 MG/DL (8.8-10.2); CARBON DIOXIDE LEVEL 31 MEQ/L (21-32); CHLORIDE LEVEL 103 MEQ/L (98-107); CREATININE FOR GFR 0.93 MG/DL (0.55-1.30); GLOMERULAR FILTRATION RATE > 60.0 (>32); GLUCOSE, FASTING 99 MG/DL (70-100); NT-PRO BNP 199 PG/ML (<450); POTASSIUM SERUM 4.3 MEQ/L (3.5-5.1); SODIUM LEVEL 137 MEQ/L (136-145); TOTAL PROTEIN 7.6 GM/DL (6.4-8.2)
== END ==
LOC: M SFHCPLAZ 08:47
PROVIDERS: ATTEND Physician Assistant Medical
DX: E87.6 Hypokalemia (principal); I50.9 Heart failure, unspecified; Z51.81 Encounter for therapeutic drug level monitoring

== ENCOUNTER → 2020-09-17 | Outpatient (REF) | payer MEDICARE ==
[2020-09-17 11:23] LABS: INR 1.16; PROTHROMBIN TIME 15.1 SECONDS (12.5-14.3)
[2020-09-17 11:39] LABS: ALBUMIN 3.3 GM/DL (3.2-5.2); BILIRUBIN,TOTAL 0.4 MG/DL (0.2-1.0); CALCIUM LEVEL 9.5 MG/DL (8.8-10.2); CREATININE FOR GFR 1.87 MG/DL (0.55-1.30); GLOMERULAR FILTRATION RATE 27.2 (>32); POTASSIUM SERUM 3.8 MEQ/L (3.5-5.1); TOTAL PROTEIN 7.6 GM/DL (6.4-8.2)
== END ==
LOC: M PLALAB 09:57
PROVIDERS: ATTEND Physician Assistant Medical
DX: I50.9 Heart failure, unspecified (principal); Z51.81 Encounter for therapeutic drug level monitoring

== ENCOUNTER → 2020-09-24 | Outpatient (REF) | payer MEDICARE ==
[2020-09-24 13:54] LABS: INR 1.19; PROTHROMBIN TIME 15.4 SECONDS (12.5-14.3)
[2020-09-24 14:10] LABS: ALBUMIN 3.2 GM/DL (3.2-5.2); BILIRUBIN,TOTAL 0.6 MG/DL (0.2-1.0); CALCIUM LEVEL 9.3 MG/DL (8.8-10.2); CREATININE FOR GFR 1.1 MG/DL (0.55-1.30); GLOMERULAR FILTRATION RATE 50.1 (>32); POTASSIUM SERUM 3.6 MEQ/L (3.5-5.1); TOTAL PROTEIN 7.5 GM/DL (6.4-8.2)
== END ==
LOC: M PLALAB 09:47
PROVIDERS: ATTEND Physician Assistant Medical
DX: N17.9 Acute kidney failure, unspecified (principal); Z86.79 Personal history of other diseases of the circulatory system; Z79.01 Long term (current) use of anticoagulants

== ENCOUNTER → 2020-10-21 | Outpatient (REF) | payer MEDICARE ==
[~2020-10-21] MED LIST changes: +MONT10TA10 PO; -MONT5TAB2 PO
[2020-10-21 13:57] LABS: INR 3.04; PROTHROMBIN TIME 32.1 SECONDS (12.5-14.3)
[2020-10-21 14:14] LABS: CALCIUM LEVEL 9.5 MG/DL (8.8-10.2); CREATININE FOR GFR 1.19 MG/DL (0.55-1.30); GLOMERULAR FILTRATION RATE 45.8 (>32)
== END ==
LOC: M SFHCPLAZ 10:22
PROVIDERS: ATTEND Physician Assistant Medical
DX: N17.9 Acute kidney failure, unspecified (principal); Z86.79 Personal history of other diseases of the circulatory system

== ENCOUNTER → 2020-11-18 | Outpatient (REF) | payer MEDICARE ==
[2020-11-18 14:07] LABS: INR 3.17; PROTHROMBIN TIME 33.2 SECONDS (12.5-14.3)
[2020-11-18 14:23] LABS: CALCIUM LEVEL 8.9 MG/DL (8.8-10.2); CREATININE FOR GFR 0.95 MG/DL (0.55-1.30); GLOMERULAR FILTRATION RATE 59.4 (>32); POTASSIUM SERUM 3.9 MEQ/L (3.5-5.1)
== END ==
LOC: M SFHCPLAZ 13:35
PROVIDERS: ATTEND Physician Assistant Medical
DX: N17.9 Acute kidney failure, unspecified (principal); Z86.79 Personal history of other diseases of the circulatory system

== ENCOUNTER → 2020-12-10 | Outpatient (REF) | payer MEDICARE | LOC: M SFHCPLAZ 10-12 12:46 | PROVIDERS: ATTEND Physician Assistant Medical | DX: Z51.81 Encounter for therapeutic drug level monitoring (principal) ==

== ENCOUNTER → 2020-12-16 | Outpatient (REF) | payer MEDICARE ==
[2020-12-16 14:14] LABS: INR 3.82; PROTHROMBIN TIME 38.5 SECONDS (12.5-14.3)
[2020-12-16 15:37] LABS: BLOOD UREA NITROGEN 24 MG/DL (7-18); CALCIUM LEVEL 8.8 MG/DL (8.8-10.2); CARBON DIOXIDE LEVEL 32 MEQ/L (21-32); CHLORIDE LEVEL 103 MEQ/L (98-107); CREATININE FOR GFR 0.94 MG/DL (0.55-1.30); GLOMERULAR FILTRATION RATE > 60.0 (>32); GLUCOSE, FASTING 101 MG/DL (70-100); POTASSIUM SERUM 4.8 MEQ/L (3.5-5.1); SODIUM LEVEL 139 MEQ/L (136-145)
== END ==
LOC: M PLALAB 11:16
PROVIDERS: ATTEND Physician Assistant Medical
DX: N17.9 Acute kidney failure, unspecified (principal); Z86.79 Personal history of other diseases of the circulatory system

== ENCOUNTER 2020-12-24 14:10 | Inpatient (IN) | payer MEDICARE ==
[~2020-12-24] VITALS: Ht 162.6 cm; Wt 117.5 kg
--- NOTE | 2020-12-24 16:45 | REP ---
INDICATION: HEMOPTYSIS CHEST PAIN. COMPARISON: Portable chest dated 07/21/2020. Chest CT dated 07/21/2020. TECHNIQUE: Upright PA and lateral chest. FINDINGS: There is a large bulla in the lingular segment of the left upper lobe, unchanged from the prior studies. The left costophrenic angle is mildly effaced on the study today as an interval change suggestive of a small left pleural effusion. There is a faintly visible soft tissue density peripherally in the right lung as an interval change. Cardiac size is mildly enlarged, unchanged. The piedad, mediastinum, and skeletal structures are unchanged. There is osteoarthritis of the right shoulder and of the left shoulder and there is an old healed fracture of the proximal left humeral shaft. IMPRESSION: Probable new small left pleural effusion. Faintly visible soft tissue density peripherally in the right lung as an interval change. Large bulla in the lingula, unchanged. Cardiomegaly, unchanged. Chronic skeletal findings as described. <Electronically signed by Santo Flores > 12/24/20 [id number]
[2020-12-24 17:26] LABS: D-DIMER QUANT 717.93 ng/ml (<500); INR 2.98; PARTIAL THROMBOPLASTIN TIME 59.4 SECONDS (24.2-38.5); PROTHROMBIN TIME 31.7 SECONDS (12.5-14.3)
[2020-12-24 17:28] LABS: ALBUMIN 2.8 GM/DL (3.2-5.2); ALT/SGPT 93 U/L (12-78); BILIRUBIN,DIRECT 0.2 MG/DL (0.0-0.2); BILIRUBIN,TOTAL 0.3 MG/DL (0.2-1.0); BLOOD UREA NITROGEN 20 MG/DL (7-18); CALCIUM LEVEL 8.9 MG/DL (8.8-10.2); CARBON DIOXIDE LEVEL 33 MEQ/L (21-32); CHLORIDE LEVEL 103 MEQ/L (98-107); CK-MB VALUE MASS 1.2 NG/ML (<3.6); CPK CREATINE PHOSPHOKINASE 58 U/L (26-192); CREATININE FOR GFR 0.93 MG/DL (0.55-1.30); GLOMERULAR FILTRATION RATE > 60.0 (>32); GLUCOSE, FASTING 105 MG/DL (70-100); LIPASE 64 U/L (73-393); MB/CK RELATIVE INDEX 2.07 (< OR =4); POTASSIUM SERUM 4.1 MEQ/L (3.5-5.1); SODIUM LEVEL 139 MEQ/L (136-145); TOTAL PROTEIN 8.1 GM/DL (6.4-8.2); TROPONIN I < 0.02 NG/ML (< 0.10)
[2020-12-24] MEDS ORDERED: ISOVUE-370 76% 100ML VIAL As Ordered ONE (17:28)
[2020-12-24 17:31] LABS: BASO # 0.1 10^3/uL (0.0-0.2); BASO % 0.4 % (0.0-1.0); EOS # 0.3 10^3/uL (0.0-0.5); EOS % 2.3 % (0.0-3.0); LYMPH % 16.6 % (24.0-44.0); MEAN CORPUSCULAR HEMOGLOBIN 27.6 pg (27.0-33.0); MEAN CORPUSCULAR HGB CONC 30.3 g/dl (32.0-36.5); MEAN CORPUSCULAR VOLUME 91.2 fl (80.0-96.0); MONO # 1.1 10^3/uL (0.0-0.8); MONO % 9.1 % (2.0-8.0); NEUTROPHILS # 8.4 10^3/uL (1.5-8.5); NEUTROPHILS % 71.1 % (36.0-66.0); PLATELET COUNT, AUTOMATED 377 10^3/uL (150-450); RED BLOOD COUNT 3.62 10^6/uL (4.00-5.40); WHITE BLOOD COUNT 11.8 10^3/uL (4.0-10.0)
[2020-12-24] MEDS ORDERED: ACETAMINOPHEN 500 MG TAB PO ONE (18:00)
--- NOTE | 2020-12-24 18:29 | REPVR ---
PROCEDURE INFORMATION: Exam: CT Angiography Chest With Contrast Exam date and time: 12/24/2020 5:42 PM Age: 85 years old Clinical indication: Chest pain; Additional info: Hemoptysis, SOB, RO pe TECHNIQUE: Imaging protocol: Computed tomographic angiography of the chest with contrast. 3D rendering (Not supervised by radiologist): MIP and/or 3D reconstructed images were created by the technologist. Radiation optimization: All CT scans at this facility use at least one of these dose optimization techniques: automated exposure control; mA and/or kV adjustment per patient size (includes targeted exams where dose is matched to clinical indication); or iterative reconstruction. Contrast material: ISO 370; Contrast volume: 75 ml; Contrast route: INTRAVENOUS (IV); COMPARISON: CT ANGIO CHEST 07/21/2020 4:45 PM FINDINGS: Pulmonary arteries: Normal. No pulmonary emboli. Aorta: Unremarkable. No aortic aneurysm. No aortic dissection. Lungs: Pleural based nodule right upper lobe (series 402, image 22) measuring 6.2 mm. Hypoventilatory changes in the dependent portion of the left lower lobe. Large bleb or bulla in the left upper lobe. Pleural spaces: Small left pleural effusion. Heart: Mild cardiomegaly. Mediastinal space: Moderate size sliding hiatal hernia. Fluid noted within the distal esophagus indicating gastroesophageal reflux. There is stranding/hazy density noted within the mesenteric fat. Lymph nodes:Supraclavicular soft tissue mass noted on the right lateral to the thyroid not imaged in its entirety measuring at least 3 by 1.7 by 1.7 cm. Pretracheal adenopathy measuring 2.2 by 1.7 cm. Prominent left axillary lymph nodes and left subpectoral lymph nodes. Periportal adenopathy present. Multiple mesenteric lymph nodes are noted in the region of the greater omentum (series 4001, image 167). Subcarinal rosy mass measuring 2.5 by 2.7 by 3.2 cm. Liver: Ring-enhancing lesion within the right lobe of the liver measuring approximately 2.6 cm. Ring-enhancing lesion in the medial segment of the left lobe of the liver measuring 2.2 cm. Lesion suggested within the caudate measuring 2.3 cm. Stomach and bowel: Mural wall thickening noted of the 2nd portion of the duodenum. Bones/joints: Mild anterior compression deformities noted involving all of the thoracic vertebral bodies. No retropulsed fragments noted. Healing fracture of the left lateral 4th rib. Acute/subacute (possible pathologic) fracture of the left posterolateral 8th rib. Healing fracture (possible pathologic) of the right posterior 6th rib. Soft tissues: Unremarkable. IMPRESSION: 1. No acute pulmonary embolism. 2. Bilateral rib fractures appearing subacute. Focal expansion of 2 of the rib fractures suggests the possibility of pathologic fracture 3. Mediastinal, right supraclavicular, left axillary, left post pectoral and abdominal adenopathy with multiple liver lesions indicating metastatic disease. 4. Pleural based pulmonary nodule right upper lobe.Fleischner Society follow up recommendations for incidental nodules are not indicated. Follow up per the patient's medical condition. COMMENTS: Consistent with the [employer]'s Incidental Findings Committee white paper (J Am Nuun Radiol 2015): In patients aged 35 years and older with an incidental thyroid nodule equal to or greater than 1.[address], MRI or extrathyroidal US, further evaluation with dedicated thyroid US is recommended for patients with normal life expectancy and without comorbidities. For smaller nodules without suspicious features, no further evaluation or follow up is recommended. Electronically signed by: Alma Carmona On 12/24/2020 18:29:26 PM
[2020-12-24] MEDS ORDERED: WARF-58 PO (19:27)
[2020-12-24] MEDS ORDERED: VITA-172 PO (19:27)
[2020-12-24] MEDS ORDERED: CALC1TAB74 PO (19:27)
[2020-12-24] MEDS ORDERED: FISH1000 PO (19:27)
[2020-12-24] MEDS ORDERED: VOLT1GEL15 TOP (19:27)
[2020-12-24] MEDS ORDERED: COMBIVENT RESPIMAT 100-20MCG INHALER 4GM INH STA (19:39)
[2020-12-24] MEDS ORDERED: ACETAMINOPHEN TAB 650MG DOSE (2X325MG) PO PRN (19:40)
[2020-12-24] MEDS ORDERED: ONDANSETRON 4MG/2ML VIAL IV PRN (19:40)
[2020-12-24] MEDS ORDERED: MAALOX 30 ML SUSP *UDC PO PRN (19:40)
[2020-12-24] MEDS ORDERED: HYDROMORPHONE HCL 0.5 MG/ 0.5 ML SYRINGE (J1170 PER 1) IV PRN (19:40)
[2020-12-24] MEDS ORDERED: MOM 30ML SUSPENSION UDC PO PRN (19:40)
--- NOTE | 2020-12-24 19:47 | HPEPDOC ---
[facility] Medical History & Physical Date of Admission Dec 24, 2020 Date of Service: Dec 24, 2020 Primary Care Physician: Kari Middleton Attending Physician: SUHA STEVENS MD History and Physical TIME OF SERVICE: 840PM CHIEF COMPLAINT: chest pain HISTORY OF PRESENT ILLNESS: This 85 yr old F presented w c/o terrible chest/rib and back pain for 3 or 4 weeks. The chest pain is worse when she takes a deep breath. She denied having trauma to her chest or falling. About 5 weeks ago she was coughing a lot and ended up coughing two blood clots which she said were about the size of the head of a pencil along with sputum with streaks of blood; this not reoccurred since. She has also lost weight, occasionally feels hot at night, but she denies sweating at night, or having fevers or chills. CT of the chest revealed rib fractures and metastasis, which the patient was previously not aware of; she is still having chest pain despite receiving morphine. REVIEW OF SYSTEMS: 12-point review of systems negative except as listed in HPI PAST MEDICAL/ SURGICAL HISTORY: Newly diagnosed metastatic cancer (primary TBD) DLP COPD (per records 2/2 exposure to dust in the workplace but pt reports not being certain about this diagnosis) Essential HTN GERD Paroxysmal A. fib on Coumadin Debility 2/2 weakness and severe OA uses wheel chair Lap appendectomy Lap cholecystectomy Right hip replacement Bilateral knee surgeries Hemorrhoidectomy Thyroid nodule resection Resection of right shoulder tumor Cardiac catheterization with normal coronary arteries Seasonal allergies SOCIAL HISTORY: She quit smoking in 1974, doesnt drink alcohol, has 7 children (lives with one of her daughters). FAMILY HISTORY: Father had CAD / Mother had liver failure / sister had breast cancer / brother had colon cancer / on sister has CAD / another brother has OA / Grand-daughter recently diagnosed with metastatic (colon ?) cancer ALLERGIES: Please see below. HOME MEDICATIONS: Please see below. PHYSICAL EXAMINATION: Vital Signs Date Time Temp Pulse Resp B/P (MAP) Pulse Ox O2 Delivery O2 Flow Rate FiO2 12/24/20 16:03 135/82 (99) 12/24/20 16:10 75 95 12/24/20 19:31 20 Room Air 12/24/20 20:31 2.0 12/24/20 21:28 98.1 GENERAL APPEARANCE: well nourished and developed / initially appeared to be distracted but after her the morphine took effect she was more interactive HEENT: EOMI /no scleral icterus CARDIOVASCULAR: RRR/NMRG / + BLE edema LUNGS: CTAB on RA ABDOMEN: obese / soft & NT MUSCULOSKELETAL: NCAT / requires assistance to sit up / denied pain with palpation of the posterior chest wall and vertebrae INTEGUMENT: not pale, flushed or jaundice NEUROLOGICAL: speech not dysarthric PSYCHIATRIC: A&O x 3 / able to understand and follow commands LABORATORY DATA: Immature Granulocyte % (Auto) 0.5, Neutrophils (%) (Auto) 71.1H, Lymphocytes (%) (Auto) 16.6L, Monocytes (%) (Auto) 9.1H, Eosinophils (%) (Auto) 2.3, Basophils (%) (Auto) 0.4, Neutrophils # (Auto) 8.4, Lymphocytes # (Auto) 2.0, Monocytes # (Auto) 1.1H, Eosinophils # (Auto) 0.3, Basophils # (Auto) 0.1, Nucleated Red Blood Cells % (auto) 0.0, Prothrombin Time 31.7H, Prothromb Time International Ratio 2.98, Activated Partial Thromboplast Time 59.4H, D-Dimer, Quantitative 717 .93H, Anion Gap 3L, Glomerular Filtration Rate > 60.0, Calcium Level 8.9, Total Bilirubin 0.3, Direct Bilirubin 0.2, Aspartate Amino Transf (AST/SGOT) 69H, Alanine Aminotransferase (ALT/SGPT) 93H, Alkaline Phosphatase 605H, Total Creatine Kinase 58, Creatine Kinase MB 1.2, Creatine Kinase MB Relative Index 2.07, Troponin I < 0.02, Total Protein 8.1, Albumin 2.8L, Albumin/Globulin Ratio 0.5L, Lipase 64L IMAGING: Chest xray IMPRESSION: Probable new small left pleural effusion. Faintly visible soft tissue density peripherally in the right lung as an interval change. Large bulla in the lingula, unchanged. Cardiomegaly, unchanged. Chronic skeletal findings as described. CTA chest IMPRESSION: 1. No acute pulmonary embolism. 2. Bilateral rib fractures appearing subacute. Focal expansion of 2 of the rib fractures suggests the possibility of pathologic fracture 3. Mediastinal, right suprac lavicular, left axillary, left post pectoral and abdominal adenopathy with multiple liver lesions indicating metastatic disease. 4. Pleural based pulmonary nodule right upper lobe.Fleischner Society follow up recommendations for incidental nodules are not indicated. Follow up per the patient's medical condition. MICROBIOLOGY: Respiratory panel neg ASSESSMENT: Ms. Mills is an 85 yr old former smoker w a hx of newly diagnosed metastatic cancer whos primary is TBD, COPD, DLP, HTN, GERD, Afib, debility and multiple surgeries who presented w c/o chest pain, remote episode hx of coughing episode w hemoptysis and weight loss; her pain is due to pathological rib fractures li olga due to cancer; she will be admitted for pain management. PLAN: 1 Chest wall and back pain 2/2 pathological fx Drop in O2 sats was likely due to hypoventilation bc of pain Plan: admit to medical floor / IV dilaudid tonight w plans to switch to PO opiate in the morning / flector patches / gabapentin / incentive spirometer / pulse ox w supplemental O2 / day time team may consider anesthesia consult for nerve block 2 Newly diagnosed metastatic cancer Plan: f/u CT abd/pelvis / day time team may consider calling Onc to discuss completing the work-up on an out pt basis vs in-pt biopsy prior to discharge 3 HTN Urgency The pt reports that her SBP is usually in the 150s at home Plan: telemetry / IV metoprolol now / resume meds / if BP not well controlled despite adequate pain management the day time team may consider adding amlodipine / c/w bisprolol and lasix 4 Leukocytosis Likely reactive Plan: monitor vitals 5 NN Anemia Likely 2/2 malignancy Plan: f/u serial Hg & hold Coumadin if there is an acute drop / f/u iron studies and stool occult 6 Transaminitis Possibly 2/2 mets +/- fatty liver Plan: trend LFTs 7 DLP Plan: Atorvastatin 8 COPD Plan: Albuterol 9 Chronic BLE edema Suspect she has chronic sys CHF bc she is also on bisprolol Plan: Lasix and metolazone / f/u BNP 10 Paroxysmal A. fib Plan: c/w Coumadin / f/u INR 11GERD Plan: PPI 12 Debility 13 Obesity Complicates care, she will likely need 2 person assistance for transfers DVT n/a on Coumadin Dispo: home after at least 2 midnights stay Laboratory Data CBC/BMP Laboratory Tests 12/24/20 16:24 Home Medications Scheduled Atorvastatin Calcium (Atorvastatin Calcium) 20 Mg Tablet, 20 MG PO DAILY Bisoprolol Fumarate (Bisoprolol Fumarate) 5 Mg Tablet, 5 MG PO DAILY Calcium Carbonate/Vitamin D3 (Calcium 600-Vit D3 400 Tablet) 1 Each Tablet, 1 TAB PO DAILY Cyanocobalamin (Vitamin B-12) (Vitamin B-12) 500 Mcg Tablet, 500 MCG PO DAILY Fluticasone Propionate (Fluticasone Propionate) 16 Gm [place].susp, 2 SPRAY NARES DAILY Furosemide (Furosemide) 40 Mg Tablet, 40 MG PO DAILY [place]-3 Fatty Acids/Fish Oil (Fish Oil 1,000 mg Capsule) 1 Each Capsule, 1,000 MG PO DAILY Omeprazole (Omeprazole) 20 Mg Capsule.dr, 20 MG PO BID Potassium Chloride (Potassium Chloride) 10 Meq Capsule.er, 10 MEQ PO BID Umeclidinium [place] (Incruse Ellipta) 62.5 Mcg Blst.w.dev, 1 PUFF INH DAILY Warfarin Sodium (Warfarin Sodium) 3 Mg Tablet, 3 MG PO QPM Scheduled PRN Albuterol Sulf (Albuterol Sulfate) 2.5 Mg/3 Ml Vial.neb, 1 VIAL NEB TID PRN for SOB/WHEEZING Albuterol Sulfate (Proair Hfa) 8.5 Gm Hfa.aer.ad, 2 PUFF INH Q4H PRN for SHORTNESS OF BREATH Diclofenac Sodium (Voltaren) 100 Gm Gel..gram., 1 GRAM TOP QID PRN for PAIN APPLY TO LEFT SHOULDER Metolazone (Metolazone) 5 Mg Tablet, 5 MG PO DAILY PRN for SWELLING ONLY TAKES WHEN HER FEET ARE BADLY SWOLLEN Allergies Coded Allergies: morphine (Verified Adverse Reaction, Intermediate, SEVERE N/V, 12/10/19) SUHA STEVENS MD Dec 24, 2020 19:47
[2020-12-24] MEDS ORDERED: METOPROLOL 5 MG/5 ML VIAL IV STA (20:08)
[2020-12-24 20:14] LABS: RSV AMPLIFICATION NEGATIVE (NEGATIVE)
[2020-12-24] MEDS: HYDROMORPHONE HCL 0.5 MG/ 0.5 ML SYRINGE (J1170 PER 1) IV PRN (20:46)
[2020-12-24] MEDS: GABAPENTIN 100 MG CAP PO SCH (21:00)
[2020-12-24] MEDS ORDERED: DICLOFENAC EPOLAMINE 1.3 % PATCH TOP SCH (21:00)
[2020-12-24] MEDS ORDERED: metOLazone 5 MG TAB PO PRN (22:30)
[2020-12-24] MEDS ORDERED: ALBUTEROL 90 MCG/ACT 8GM HFA INHALER INH PRN (22:30)
[2020-12-25] VITALS (14 sets, daily range): BP systolic 86–129; BP diastolic 49–94
[2020-12-25 00:17] LABS: FERRITIN 70 NG/ML (8-252); IRON (FE) 29 UG/DL (50-170); NT-PRO BNP 144 PG/ML (<450); PERCENT SATURATION 9.8 % (13.2-45.0); TOTAL IRON BINDING CAPACITY 297 UG/DL (250-450)
[2020-12-25] MEDS: POTASSIUM CHLORIDE 10 MEQ SR TABLET PO SCH ×3 (01:00→20:39)
[2020-12-25] MEDS: WARFARIN SOD 3MG TAB PO SCH ×2 (01:01→17:09)
[2020-12-25] MEDS: OMEPRAZOLE 20 MG CAP PO SCH ×3 (01:01→20:39)
[2020-12-25] MEDS: DICLOFENAC EPOLAMINE 1.3 % PATCH TOP SCH ×3 (01:01→20:39)
[2020-12-25] MEDS: HYDROMORPHONE HCL 0.5 MG/ 0.5 ML SYRINGE (J1170 PER 1) IV PRN (04:09)
[2020-12-25 05:18] LABS: HEMATOCRIT 30.2 % (36.0-47.0); HEMOGLOBIN 9.1 g/dl (12.0-15.5); MEAN CORPUSCULAR HEMOGLOBIN 27.2 pg (27.0-33.0); MEAN CORPUSCULAR HGB CONC 30.1 g/dl (32.0-36.5); MEAN CORPUSCULAR VOLUME 90.4 fl (80.0-96.0); PLATELET COUNT, AUTOMATED 310 10^3/uL (150-450); RED BLOOD COUNT 3.34 10^6/uL (4.00-5.40); WHITE BLOOD COUNT 10.8 10^3/uL (4.0-10.0)
[2020-12-25 05:29] LABS: INR 2.61; PROTHROMBIN TIME 28.5 SECONDS (12.5-14.3)
[2020-12-25 05:55] LABS: ALBUMIN 2.4 GM/DL (3.2-5.2); ALT/SGPT 80 U/L (12-78); BILIRUBIN,TOTAL 0.5 MG/DL (0.2-1.0); BLOOD UREA NITROGEN 17 MG/DL (7-18); CALCIUM LEVEL 8.2 MG/DL (8.8-10.2); CARBON DIOXIDE LEVEL 33 MEQ/L (21-32); CHLORIDE LEVEL 102 MEQ/L (98-107); CREATININE FOR GFR 0.79 MG/DL (0.55-1.30); GLOMERULAR FILTRATION RATE > 60.0 (>32); GLUCOSE, FASTING 95 MG/DL (70-100); POTASSIUM SERUM 3.8 MEQ/L (3.5-5.1); SODIUM LEVEL 138 MEQ/L (136-145); TOTAL PROTEIN 7.3 GM/DL (6.4-8.2)
[2020-12-25] MEDS ORDERED: PERCOCET 5MG/325MG TAB PO PRN (08:55)
[2020-12-25] MEDS: FLUTICASONE PROP 0.05% NASAL SPRAY 16 GM (FLONASE) NARES SCH (08:58)
[2020-12-25] MEDS: FUROSEMIDE 40 MG TAB PO SCH (08:59)
[2020-12-25] MEDS: ATORVASTATIN 20 MG TAB PO SCH (08:59)
[2020-12-25] MEDS: bisoproloL fumarate 5 MG TAB PO SCH (09:00)
[2020-12-25] MEDS: MIRALAX *UNIT DOSE* 17GM PACKET PO SCH (09:00)
--- NOTE | 2020-12-25 11:15 | CR.PDOC ---
General Date of Consultation: Dec 25, 2020 Referring Provider: SUHA STEVENS MD Primary Care Physician: Kari Middleton Consultation REASON FOR CONSULTATION/CHIEF COMPLAINT: [85 year old with metastatic lung cancer diagnosed yesterday after she presented to ED with complaintsof chest wall pain. She has rib fractures, and also reports she had hemoptysis about 2 weeks ago that she reported to PCP when she as seen in a regular follow up and alos reported having increaed pain in her chest wall. Her pain became worse, she was seen in ED here and found to have RUL pleural based node, supraclav icular soft tissue mass, pretracheal adenopathy, left axially and subpectoral lymphadenopathy and a subcarinal mass. She also has a liver mesion in the right and left liver lobes. Bilateral rib fractures may be pathological. HISTORY OF PRESENT ILLNESS: as above ALLERGIES: Please see below. HOME MEDICATIONS: Please see below. PAST MEDICAL HISTORY: 1. COPD 2. HTN 3. Afib 4. debility related to severe OA, in wheelchair PAST SURGICAL HISTORY: 1. lap appy 2. lap donovan 3. R hip replacement 4. resection right shoulder tumor 5. bilatearl knee surgeries FAMILY HISTORY: reports sister had cancer of uncertina primary and had RT that caused terrible symptoms. Granddaughter has colon cancer. Mother had liver cancer SOCIAL HISTORY: Marital status and/or living arrangements: , lives with daughter Children: 7 Employment: retired Tobacco use: former ETOH: special occasions only Illicit drug use: none REVIEW OF SYSTEMS: noncontributoryother than hemoptysis, increased chest wall pain and some fatigue. Denies fevers, chills night sweats, n/v/c/d, appetite is fair. +weight loss PHYSICAL EXAMINATION: VITAL SIGNS: Please see below. GENERAL APPEARANCE: alert, oreinted, pleasant, good historian, pverweight [place] female HEENT: edentulous RESPIRATORY: increaed pain with deep breaths, no use of accessory muscles, CTA CARDIOVASCULAR: RRR ABDOMEN: obese, +BS, no guarding or rebound EXTREMITIES: +edema NEUROLOGICAL: able to make needs kown, fair UE strength, poor LE strength. PSYCHIATRIC: ethymic LABORATORY DATA: Please see below. ASSESSMENT/PLAN: 1. metastatic cancer, likely lung primary. She is not interested in any treatment for her cancer. She was quite frm in th stating "I am 85 years old and I don't want to go through any treatment that will make me feel worse. I think this has been going on a long time and I want to enjoy the time I have left. 2. goals of care: She just made herself DNR/DNI. Nursing has had her pain medication changed from IV Dilaudid t po Percocet and I think this makes great sense. I reviewed 5 Wishes with Abhijit and left a copy for her to use to review with her family. Jonathan thinks her daughter will be upset she is deciding not to pursue treatment however, he appears to be competent to make her own health care decisions. I explained the difference between my palliactive care clinic and hospice and she knows if she wishes to be followed there she or her family can call for an appointment. Vital Signs/I&O Vital Signs Date Time Temp Pulse Resp B/P (MAP) Pulse Ox O2 Delivery O2 Flow Rate FiO2 12/25/20 09:13 18 Nasal Cannula 1.0 12/25/20 09:00 69 96/71 12/25/20 06:21 97 12/25/20 04:00 97.2 I&O- Last 24 Hours up to 6 AM 12/25/20 05:59 Intake Total 60 ml Output Total 500 ml Balance -440 ml Laboratory Data Labs 24H Laboratory Tests 2 12/24/20 16:24: Immature Granulocyte % (Auto) 0.5, Neutrophils (%) (Auto) 71.1H, Lymphocytes (%) (Auto) 16.6L, Monocytes (%) (Auto) 9.1H, Eosinophils (%) (Auto) 2.3, Basophils (%) (Auto) 0.4, Neutrophils # (Auto) 8.4, Lymphocytes # (Auto) 2.0, Monocytes # (Auto) 1.1H, Eosinophils # (Auto) 0.3, Basophils # (Auto) 0.1, Nucleated Red Blood Cells % (auto) 0.0, Prothrombin Time 31.7H, Prothromb Time International Ratio 2.98, Activated Partial Thromboplast Time 59.4H, D-Dimer, Quantitative 717.93H, Anion Gap 3L, Glomerular Filtration Rate > 60.0, Calcium Level 8.9, Iron Level 29L, Total Iron Binding Capacity 297, Transferrin % Saturation 9.8L, Ferritin 70, Total Bilirubin 0.3, Direct Bilirubin 0.2, Aspartate Amino Transf (AST/SGOT) 69H, Alanine Aminotransferase (ALT/SGPT) 93H, Alkaline Phosphatase 605H, Total Creatine Kinase 58, Creatine Kinase MB 1.2, Creatine Kinase MB Relative Index 2.07, Troponin I < 0.02, OT-Ihy-Q-Type Natriuretic Peptide 144, Total Protein 8.1, Albumin 2.8L, Albumin/Globulin Ratio 0.5L, Lipase 64L 12/24/20 19:18: Coronavirus (COVID-19)(PCR) NEGATIVE, Influenza Type A (RT-PCR) NEGATIVE, Influenza Type B (RT-PCR) NEGATIVE, Respiratory Syncytial Virus (PCR) NEGATIVE 12/25/20 04:20: Nucleated Red Blood Cells % (auto) 0.0, Prothrombin Time 28.5H, Prothromb Time International Ratio 2.61, Anion Gap 3L, Glomerular Filtration Rate > 60.0, Lucho cium Level 8.2L, Total Bilirubin 0.5#, Aspartate Amino Transf (AST/SGOT) 78H, Alanine Aminotransferase (ALT/SGPT) 80H, Alkaline Phosphatase 547H, Total Protein 7.3, Albumin 2.4L, Albumin/Globulin Ratio 0.5L, Reticulocyte # (auto) 77.2H, Percent Reticulocyte Count 2.3H, Reticulocyte Hemoglobin Equivalent 27.0 CBC/BMP Laboratory Tests 12/24/20 16:24 12/24/20 21:31 12/25/20 04:20 Allergies Coded Allergies: morphine (Verified Adverse Reaction, Intermediate, SEVERE N/V, 12/10/19) Home Medications Scheduled Atorvastatin Calcium (Atorvastatin Calcium) 20 Mg Tablet, 20 MG PO DAILY, (Reported) Bisoprolol Fumarate (Bisoprolol Fumarate) 5 Mg Tablet, 5 MG PO DAILY, (Reported) Calcium Carbonate/Vitamin D3 (Calcium 600-Vit D3 400 Tablet) 1 Each Tablet, 1 TAB PO DAILY, (Reported) Cyanocobalamin (Vitamin B-12) (Vitamin B-12) 500 Mcg Tablet, 500 MCG PO DAILY, (Reported) Fluticasone Propionate (Fluticasone Propionate) 16 Gm [place].susp, 2 SPRAY NARES DAILY, (Reported) Furosemide (Furosemide) 40 Mg Tablet, 40 MG PO DAILY, (Reported) [place]-3 Fatty Acids/Fish Oil (Fish Oil 1,000 mg Capsule) 1 Each Capsule, 1,000 MG PO DAILY, (Reported) Omeprazole (Omeprazole) 20 Mg Capsule.dr, 20 MG PO BID, (Reported) Potassium Chloride (Potassium Chloride) 10 Meq Capsule.er, 10 MEQ PO BID, (Reported) Umeclidinium [place] (Incruse Ellipta) 62.5 Mcg Blst.w.dev, 1 PUFF INH DAILY, (Reported) Warfarin Sodium (Warfarin Sodium) 3 Mg Tablet, 3 MG PO QPM, (Reported) Scheduled PRN Albuterol Sulf (Albuterol Sulfate) 2.5 Mg/3 Ml Vial.neb, 1 VIAL NEB TID PRN for SOB/WHEEZING, (Reported) Albuterol Sulfate (Proair Hfa) 8.5 Gm Hfa.aer.ad, 2 PUFF INH Q4H PRN for SHORTNESS OF BREATH, (Reported) Diclofenac Sodium (Voltaren) 100 Gm Gel..gram., 1 GRAM TOP QID PRN for PAIN, (Reported) APPLY TO LEFT SHOULDER Metolazone (Metolazone) 5 Mg Tablet, 5 MG PO DAILY PRN for SWELLING, (Reported) ONLY TAKES WHEN HER FEET ARE BADLY SWOLLEN Nickie [place] Dec 25, 2020 11:10
[2020-12-25] MEDS: DOCUSATE SODIUM 100MG CAPSULE PO SCH ×2 (11:18→20:39)
--- NOTE | 2020-12-25 12:35 | IPNPDOC ---
Text Note Date of Service The patient was seen on 12/25/20. NOTE SUBJECTIVE: Patient was seen and examined this morning at bedside. She states she continues to have some pain over her left chest wall. She states the pain medication has helped. She states she does not want to see an oncologist or consider any treatment for her metastatic disease. She expresses understand in the extend of her disease. She tells me that she would like to be DNR/DNI. She is alert and oriented x4 to person, place, time, and situation during my interview with her. She states she is not ready to consider hospice care, but would like to pursue palliative care. OBJECTIVE: VITAL SIGNS: see below GENERAL: Alert, comfortable, in no acute distress HEENT: Normocephalic, atraumatic, sclera anicteric, moist mucous membranes NECK: Supple, trachea midline CARDIOVASCULAR: Regular rate and rhythm, normal S1 and S2. No murmurs, rubs, or gallops RESPIRATORY: Clear to auscultation bilaterally with equal air entry bilaterally. No wheezing, rhonchi, or rales. ABDOMEN: Soft, nontender, nondistended, bowel sounds present EXTREMITIES: Trace to 1+ bilateral leg edema. Pulses 2+/4 in bilateral upper and lower extremities SKIN: [place], warm, dry NEUROLOGIC: Alert and oriented x3 to person, place and time. No focal deficits appreciated PSYCHIATRIC: Mood and affect appropriate ASSESSMENT/PLAN: 85 year old female with metastatic cancer of unknown primary presented with uncontrolled pain found to have rib fractures concerning for pathologic fractures related to metastatic disease # Chest wall pain secondary to pathologic fractures - pain better controlled this morning. Will switch her to oral pain regimen with percocet. 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 - discussed with pain management specialists who will monitor her response to the medication and help make adjustments if her pain continues to be uncontrolled. # Metastatic cancer of unknown primary - discussed the relatively new finding of metastatic disease with the patient. She states she is not interested in further testing or treatment. We discussed referral to oncology for her to hear what further testing and treatment plans might look like. patient declines referral at this time. She has decided to change her code status to DNR/DNI. She is alert and oriented x4 and able to make her own medical decisions. - patient agrees to palliative care consult. she does not feel ready to discuss hospice care at this time. # Transaminitis - may be due to metastatic disease vs other cause. will trend daily. - f/u outpatient as appropriate. further work up may not be warranted given patient does not want to pursue treatment of her metastatic cancer. # HTN - BP well controlled, likely elevated on admission due to pain # Anemia - H/H stable, trend daily. - f/u reticulocyte count to rule out bone marrow suppression # Paroxysmal A. fib - continue home warfarin and bisoprolol # GERD - continue PPI # Chronic BLE edema - continue home lasix and metolazone DVT prophylaxis: on coumadin DISPOSITION: pending improvement of pain, possible d/c home in the next 24-48 hours. VS,Fishbone, I+O VS, Fishbone, I+O Laboratory Tests 12/24/20 16:24 12/24/20 21:31 12/25/20 04:20 Vital Signs Date Time Temp Pulse Resp B/P (MAP) Pulse Ox O2 Delivery O2 Flow Rate FiO2 12/25/20 11:19 16 12/25/20 09:13 Nasal Cannula 1.0 12/25/20 09:00 70 96/61 (73) 96 12/25/20 07:40 97.5 I&O- Last 24 Hours up to 6 AM 12/25/20 06:00 Intake Total 300 ml Output Total 500 ml Balance -200 ml STEPHANIE GREEN D.O. Dec 25, 2020 12:35
[2020-12-25] MEDS: PERCOCET 5MG/325MG TAB PO PRN ×2 (18:12→22:24)
[2020-12-25] MEDS ORDERED: ISOVUE-370 76% 100ML VIAL As Ordered ONE (19:07)
[2020-12-25] MEDS: GABAPENTIN 100 MG CAP PO SCH (20:39)
--- NOTE | 2020-12-25 21:12 | REPVR ---
PROCEDURE INFORMATION: Exam: CT Abdomen And Pelvis With Contrast Exam date and time: 12/25/2020 7:48 PM Age: 85 years old Clinical indication: Other: Metastatic cancer primary tbd TECHNIQUE: Imaging protocol: Computed tomography of the abdomen and pelvis with contrast. Radiation optimization: All CT scans at this facility use at least one of these dose optimization techniques: automated exposure control; mA and/or kV adjustment per patient size (includes targeted exams where dose is matched to clinical indication); or iterative reconstruction. Contrast material: ISOVUE 370; Contrast volume: 100 ml; Contrast route: INTRAVENOUS (IV); COMPARISON: CT ABD/PEL W/IV CONTRAST ONLY 07/21/2020 4:45 PM FINDINGS: Pleural spaces: There is a moderate left pleural effusion. Liver: 2.5 cm low-density lesion inferior aspect of the right lobe of the liver near the falciform ligament and this could represent a metastatic lesion. Gallbladder and bile ducts: On 07/21/2020 the patient had massive enlargement of the gallbladder and surrounding inflammation. The patient has since had removal of the gallbladder. Pancreas: Normal size pancreas. Spleen: Normal spleen. Adrenal glands: Normal adrenal glands. Kidneys and ureters: In there is enhancement of both kidneys. Stomach and bowel: There is a small hiatal hernia with 1/4 of the stomach above the diaphragm. There are surgical clips along the margin of the cecum. The appendix is not identified. Normal appearing small bowel. Intraperitoneal space: There is no evidence of pneumoperitoneum. Vasculature: There is opacification of the SMV and the SMA. There is opacification of the aorta. There is calcification along margins of the aorta consistent with atherosclerotic changes. Lymph nodes: There is a hazy appearance of stranding density along with enlarged lymph nodes anterior mesentery just anterior to the stomach and suspicious for mesenteric metastasis. There is stranding along the colon and duodenal C loop as well. New 2.3 cm lymph node just above the pancreas near the shoaib hepatis. There are new enlarged lymph nodes along the margins of the aorta the largest measuring 1 cm. Urinary bladder: There is dilute contrast within the urinary bladder. Reproductive: There is some enlargement of the uterus which deviates to the left. Bones/joints: There is a large posterior disc protrusion L3-L4 with bilateral L3 neural foraminal narrowing. There is also neural foraminal narrowing right left L4 and L5. There is very prominent osteophyte formation upper lumbar region. There is a fracture of the posterior aspect of the right 6th rib with thick callus formation and pleural thickening. Soft tissues: There is a prominent area of probable subcutaneous scarring over the right iliac bone. IMPRESSION: 1. Small to moderate left pleural effusion and mild left basilar atelectasis. 2. Since previous examination the patient has had removal of the gallbladder which previously had the appearance of severe distension in severe inflammation of the margins. 3. Interval development of hazy appearance and stranding density of the anterior mesentery along the anterior margin of the liver and transverse colon. There also in new enlarged lymph nodes. The duodenal C loop demonstrates stranding density and hazy marginal density to the shoaib hepatis. The changes could be the result of mesenteric metastasis. The changes could also be the result of the previous severe inflammation of the gallbladder. However the enlarged lymph nodes would be unusual. 4. 2.5 cm lesion right lobe of the liver near the gallbladder fossa could be a metastatic lesion. Abscess would be another consideration and continued surveillance would be important. 5. 2.3 cm new lymph node near the shoaib hepatis. New enlarged lymph nodes along the aorta. 6. Fracture with callus posterior right 6th rib. Electronically signed by: Kyrie Delcid On 12/25/2020 21:12:25 PM
[2020-12-26] MEDS: PERCOCET 5MG/325MG TAB PO PRN (04:53)
[2020-12-26 06:00] VITALS: BP 118/56
[2020-12-26 07:12] LABS: INR 2.94; PROTHROMBIN TIME 31.3 SECONDS (12.5-14.3)
[2020-12-26] MEDS: FLUTICASONE PROP 0.05% NASAL SPRAY 16 GM (FLONASE) NARES SCH (08:39)
[2020-12-26] MEDS: FUROSEMIDE 40 MG TAB PO SCH (08:39)
[2020-12-26] MEDS: POTASSIUM CHLORIDE 10 MEQ SR TABLET PO SCH (08:39)
[2020-12-26] MEDS: DOCUSATE SODIUM 100MG CAPSULE PO SCH (08:39)
[2020-12-26] MEDS: OMEPRAZOLE 20 MG CAP PO SCH (08:40)
[2020-12-26] MEDS: ATORVASTATIN 20 MG TAB PO SCH (08:40)
[2020-12-26 08:43] VITALS: BP 112/42
[2020-12-26] MEDS: bisoproloL fumarate 5 MG TAB PO SCH (08:43)
[2020-12-26] MEDS: MIRALAX *UNIT DOSE* 17GM PACKET PO SCH (08:45)
[2020-12-26] MEDS: DICLOFENAC EPOLAMINE 1.3 % PATCH TOP SCH (08:46)
[2020-12-26] MEDS ORDERED: OXYC1TAB23 PO (09:11)
--- NOTE | 2020-12-26 13:41 | DS.PDOC ---
Discharge Summary General Date of Admission Dec 24, 2020 at 20:32 Date of Discharge December 26, 2020 Primary Care Physician: Kari Middleton Attending Physician: VI CLARK MD Discharge Summary PROCEDURES PERFORMED DURING STAY: None. ADMITTING DIAGNOSES: Chest wall and back pain 2/2 pathological fx Metastatic cancer of unknown primary HTN Urgency Leukocytosis Anemia Transaminitis HLD COPD Chronic leg edema Paroxysmal A. fib GERD Obesity DISCHARGE DIAGNOSES: Chest wall and back pain 2/2 pathological fx Metastatic cancer of unknown primary HTN Leukocytosis Anemia Transaminitis HLD COPD Chronic leg edema Paroxysmal A. fib GERD Obesity COMPLICATIONS/CHIEF COMPLAINT: Hemoptysis, Metastasis. HISTORY OF PRESENT ILLNESS: 85 year old female who presented to the ED with 3-4 weeks of worsening chest wall pain. Pt reports pain is worse when she takes a deep breath. Pt denies trauma or recent fall. Pt notes she had been coughing hard about 4 weeks ago prior to to onset of pain. She reports coughing up some dark brown sputum at that time. She denies any recurrent cough. Patient states she has noticed weight loss. Pt reports she was diagnosed with metastatic cancer. Imaging in the ED revealed pathologic rib fractures. HOSPITAL COURSE: Patient was admitted to the hospital and initially started on IV Dilaudid for pain control with good effect. Patient was switched to oral perc ocet and continued to have good pain control. Palliative care was consulted and saw the patient. Patient agrees to follow outpatient with palliative care. Patient required supplemental oxygen during her admission, likely due to respiratory splinting. Patient was discharged on home O2 and give an inspiratory spirometer. The patient's cancer diagnosis and potential further workup to including biopsy to determine a primary source was discussed with the patient. She decline any further work up. The patient also declined referral to oncology. Code status was discussed in detail with the patient and she has decided on DNR/DNI. DISCHARGE MEDICATIONS: Please see below. ALLERGIES: Please see below. PHYSICAL EXAMINATION ON DISCHARGE: VITAL SIGNS: Please see below. GENERAL: Alert, comfortable, in no acute distress HEENT: Normocephalic, atraumatic, sclera anicteric, moist mucous membranes NECK: Supple, trachea midline CARDIOVASCULAR: Regular rate and rhythm, normal S1 and S2. No murmurs, rubs, or gallops RESPIRATORY: Clear to auscultation bilaterally with equal air entry bilaterally. No wheezing, rhonchi, or rales. ABDOMEN: Soft, nontender, nondistended, bowel sounds present EXTREMITIES: Trace to 1+ bilateral leg edema. Pulses 2+/4 in bilateral upper and lower extremities SKIN: [place], warm, dry NEUROLOGIC: Alert and oriented x3 to person, place and time. No focal deficits appreciated PSYCHIATRIC: Mood and affect appropriate LABORATORY DATA: Please see below. IMAGING: (impressions per radiologist report) - CXR Probable new small left pleural effusion. Faintly visible soft tissue density peripherally in the right lung as an interval change. Large bulla in the lingula, unchanged. Cardiomegaly, unchanged. Chronic skeletal findings as described. - CTA Chest 1. No acute pulmonary embolism. 2. Bilateral rib fractures appearing subacute. Focal expansion of 2 of the rib fractures suggests the possibility of pathologic fracture 3. Mediastinal, right supraclavicular, left axillary, left post pectoral and abdominal adenopathy with multiple liver lesions indicating metastatic disease. 4. Pleural based pulmonary nodule right upper lobe.Fleischner Society follow up recommendations for incidental nodules are not indicated. Follow up per the patient's medical condition. - CT abdomen/pelvis 1. Small to moderate left pleural effusion and mild left basilar atelectasis. 2. Since previous examination the patient has had removal of the gallbladder which previously had the appearance of severe distension in severe inflamma tion of the margins. 3. Interval development of hazy appearance and stranding density of the anterior mesentery along the anterior margin of the liver and transverse colon. There also in new enlarged lymph nodes. The duodenal C loop demonstrates stranding density and hazy marginal density to the shoaib hepatis. The changes could be the result of mesenteric metastasis. The changes could also be the result of the previous severe inflammation of the gallbladder. However the enlarged lymph nodes would be unusual. 4. 2.5 cm lesion right lobe of the liver near the gallbladder fossa could be a metastatic lesion. Abscess would be another consideration and continued surveillance would be important. 5. 2.3 cm new lymph node near the shoaib hepatis. New enlarged lymph nodes along the aorta. 6. Fracture with callus posterior right 6th rib. PROGNOSIS: Poor ACTIVITY: As tolerated. DIET: Regular diet DISCHARGE PLAN: Home to follow up with palliative care for pain needs. DISPOSITION: Home DISCHARGE INSTRUCTIONS: 1. Follow up with you PCP within 7-10 days 2. Follow up with palliative care Nickie Nuñez NP 3. If your symptoms worsen please call your PCP or return to the ED for further evaluation ITEMS TO FOLLOWUP ON ON OUTPATIENT: 1. Continue to re-evaluate need for home O2. DISCHARGE CONDITION: Stable. TIME SPENT ON DISCHARGE: Greater than 35 minutes. Vital Signs/I&Os Vital Signs Date Time Temp Pulse Resp B/P (MAP) Pulse Ox O2 Delivery O2 Flow Rate FiO2 12/26/20 09:00 1.0 12/26/20 08:43 84 112/42 12/26/20 06:00 97.1 20 93 Nasal Cannula I&O- Last 24 Hours up to 6 AM 12/26/20 05:59 Intake Total 840 ml Output Total 900 ml Balance -60 ml Laboratory Data Labs 24H Laboratory Tests 2 12/26/20 06:20: Prothrombin Time 31.3H, Prothromb Time International Ratio 2.94 Discharge Medications Scheduled Atorvastatin Calcium (Atorvastatin Calcium) 20 Mg Tablet, 20 MG PO DAILY, (Reported) Bisoprolol Fumarate (Bisoprolol Fumarate) 5 Mg Tablet, 5 MG PO DAILY, (Reported) Calcium Carbonate/Vitamin D3 (Calcium 600-Vit D3 400 Tablet) 1 Each Tablet, 1 TAB PO DAILY, (Reported) Cyanocobalamin (Vitamin B-12) (Vitamin B-12) 500 Mcg Tablet, 500 MCG PO DAILY, (Reported) Docusate Sodium (Dok) 100 Mg Capsule, 100 MG PO BID Fluticasone Propionate (Fluticasone Propionate) 16 Gm Hector.susp, 2 SPRAY NARES DAILY, (Reported) Furosemide (Furosemide) 40 Mg Tablet, 40 MG PO DAILY, (Reported) [place]-3 Fatty Acids/Fish Oil (Fish Oil 1,000 mg Capsule) 1 Each Capsule, 1,000 MG PO DAILY, (Reported) Omeprazole (Omeprazole) 20 Mg Capsule.dr, 20 MG PO BID, (Reported) Potassium Chloride (Potassium Chloride) 10 Meq Capsule.er, 10 MEQ PO BID, (Reported) Umeclidinium [place] (Incruse Ellipta) 62.5 Mcg Blst.w.dev, 1 PUFF INH DAILY, (Reported) Warfarin Sodium (Warfarin Sodium) 3 Mg Tablet, 3 MG PO QPM, (Reported) Scheduled PRN Albuterol Sulf (Albuterol Sulfate) 2.5 Mg/3 Ml Vial.neb, 1 VIAL NEB TID PRN for SOB/WHEEZING, (Reported) Albuterol Sulfate (Proair Hfa) 8.5 Gm Hfa.aer.ad, 2 PUFF INH Q4H PRN for SHORTNESS OF BREATH, (Reported) Diclofenac Sodium (Voltaren) 100 Gm Gel..gram., 1 GRAM TOP QID PRN for PAIN, (Reported) APPLY TO LEFT SHOULDER Metolazone (Metolazone) 5 Mg Tablet, 5 MG PO DAILY PRN for SWELLING, (Reported) ONLY TAKES WHEN HER FEET ARE BADLY SWOLLEN Oxycodone HCl/Acetaminophen (Oxycodone-Acetaminophen 5-325) 1 Each Tablet, 1 TAB PO QIDP PRN for pain Allergies Coded Allergies: morphine (Verified Adverse Reaction, Intermediate, SEVERE N/V, 12/10/19) STEPHANIE GREEN D.O. Dec 26, 2020 13:41
[2020-12-26] MEDS ORDERED: DOK1CAP7 PO (15:41)
== END 2020-12-26 14:16 | disposition home or self-care (01) | DRG 543 ==
LOC: M ED 14:10 → ENRESERV 20:18 → M ED INP 20:32 → ENRESERV 22:42 → M ICU 12-25 00:07 → M MSPAV 12-25 11:57
PROVIDERS: ADMIT Internal Medicine; ATTEND Internal Medicine
DX: M84.58XA Pathological fracture in neoplastic disease, other specified site, initial encounter for fracture (principal); I50.22 Chronic systolic (congestive) heart failure; C79.51 Secondary malignant neoplasm of bone; Z68.41 Body mass index [BMI] 40.0-44.9, adult; I48.0 Paroxysmal atrial fibrillation; E66.9 Obesity, unspecified; I16.0 Hypertensive urgency; J44.9 Chronic obstructive pulmonary disease, unspecified; D72.829 Elevated white blood cell count, unspecified; D64.9 Anemia, unspecified; K21.9 Gastro-esophageal reflux disease without esophagitis; Z79.899 Other long term (current) drug therapy; Z88.5 Allergy status to narcotic agent; Z87.891 Personal history of nicotine dependence; Z79.01 Long term (current) use of anticoagulants; M19.90 Unspecified osteoarthritis, unspecified site; Z96.641 Presence of right artificial hip joint; Z66 Do not resuscitate; C80.1 Malignant (primary) neoplasm, unspecified

== ENCOUNTER → 2021-01-01 | Outpatient (REF) | payer MEDICARE ==
[~2021-01-01] MED LIST changes: +CALC1TAB74 PO; +DOK1CAP7 PO; +FISH1000 PO; +OXYC1TAB23 PO; +VITA-172 PO; +VOLT1GEL15 TOP; +WARF-58 PO
[2021-01-01 18:05] LABS: FERRITIN 135 NG/ML (8-252); IRON (FE) 20 UG/DL (50-170)
[2021-01-01 18:21] LABS: BASO % 0.2 % (0.0-1.0); EOS # 0.3 10^3/uL (0.0-0.5); EOS % 2.3 % (0.0-3.0); HEMOGLOBIN 9.7 g/dl (12.0-15.5); LYMPH # 1.6 10^3/uL (1.5-5.0); LYMPH % 13.6 % (24.0-44.0); MEAN CORPUSCULAR HEMOGLOBIN 26.4 pg (27.0-33.0); MEAN CORPUSCULAR HGB CONC 29.4 g/dl (32.0-36.5); MEAN CORPUSCULAR VOLUME 89.9 fl (80.0-96.0); MONO % 8.6 % (2.0-8.0); NEUTROPHILS # 8.9 10^3/uL (1.5-8.5); NEUTROPHILS % 74.8 % (36.0-66.0); PLATELET COUNT, AUTOMATED 401 10^3/uL (150-450); RED BLOOD COUNT 3.67 10^6/uL (4.00-5.40); WHITE BLOOD COUNT 11.9 10^3/uL (4.0-10.0)
[2021-01-01 18:35] LABS: INR 3.17; PROTHROMBIN TIME 33.3 SECONDS (12.5-14.3)
[2021-01-01 18:36] LABS: PARTIAL THROMBOPLASTIN TIME 74.7 SECONDS (24.2-38.5)
[2021-01-01 18:41] LABS: CA19-9 TUMOR MARKER,CARBOHYDRA 4.6 U/ML (<35.0)
[2021-01-05 16:09] LABS: AFP TUMOR TOTAL 1.4 ng/mL (0.0-8.0)
== END ==
LOC: M SFHCPLAZ 15:05
PROVIDERS: ATTEND Physician Assistant Medical
DX: C80.1 Malignant (primary) neoplasm, unspecified (principal); D50.9 Iron deficiency anemia, unspecified; R79.89 Other specified abnormal findings of blood chemistry; R07.89 Other chest pain
CPT/HCPCS: 36415; 82107; 82378; 82728; 83540; 85025; 85610; 85730; 86301; 99496; G0463

== ENCOUNTER → 2021-01-08 | Outpatient (REF) | payer MEDICARE ==
[2021-01-08 14:01] LABS: BASO % 0.3 % (0.0-1.0); EOS # 0.2 10^3/uL (0.0-0.5); EOS % 1.4 % (0.0-3.0); HEMATOCRIT 30.9 % (36.0-47.0); HEMOGLOBIN 9.2 g/dl (12.0-15.5); LYMPH # 1.8 10^3/uL (1.5-5.0); MEAN CORPUSCULAR HGB CONC 29.8 g/dl (32.0-36.5); MEAN CORPUSCULAR VOLUME 90.6 fl (80.0-96.0); MONO % 7.7 % (2.0-8.0); NEUTROPHILS # 9.7 10^3/uL (1.5-8.5); PLATELET COUNT, AUTOMATED 400 10^3/uL (150-450); RED BLOOD COUNT 3.41 10^6/uL (4.00-5.40); WHITE BLOOD COUNT 12.8 10^3/uL (4.0-10.0)
[2021-01-08 14:07] LABS: INR 1.12; PROTHROMBIN TIME 14.6 SECONDS (12.5-14.3)
[2021-01-08 14:08] LABS: PARTIAL THROMBOPLASTIN TIME 35.2 SECONDS (24.2-38.5)
== END ==
LOC: M PLALAB 11:32
PROVIDERS: ATTEND Physician Assistant Medical
DX: C80.1 Malignant (primary) neoplasm, unspecified (principal); D50.9 Iron deficiency anemia, unspecified